=== PATIENT | male | born 1945 | race African-American/Black ===

== ENCOUNTER 2017-11-28 10:29 | Emergency (ER) | payer MEDICARE ==
[~2017-11-28] VITALS: Ht 185.4 cm; Wt 81.6 kg
[2017-11-28 12:47] VITALS: BP 150/78
== END 2017-11-28 12:00 | disposition home or self-care (01) ==
LOC: FSED 10:29
DX: J30.9 Allergic rhinitis, unspecified (principal); R05 Cough; R03.0 Elevated blood-pressure reading, without diagnosis of hypertension
CPT/HCPCS: 71046; 99283

== ENCOUNTER 2019-01-01 12:47 | Emergency (ER) | payer MEDICARE ==
[~2019-01-01] VITALS: Ht 177.8 cm; Wt 81.6 kg
--- OUTSIDE RECORDS SUMMARY | 2019-01-01 12:50 | XMS REPORT | CCD ---
Author Author Auto Generated Organization [facility] Address Unknown Phone Unavailable Care Team Providers Care [employer] Name Role Phone Otilio Hernández CP Allergies, Adverse Reactions, Alerts Substance Reaction Status NKDA Active Problem List Condition Effective Dates Status Cholesterol Resolved Diabetes mellitus Resolved GERD - Gastro-esophageal reflux disease Resolved Hypertension Resolved Vital Signs Most recent to oldest [Reference Range]: 1 2 3 Height 185.42 cm (09/19/2013 00:25:00) Temperature Oral [96.4-99.1 DegF] 98.2 DegF (09/19/2013 05:55:00) 98.0 DegF (09/19/2013 02:52:00) 98.1 DegF (09/19/2013 00:25:00) Systolic Blood Pressure [90-140 mmHg] 153 mmHg *HI* (09/19/2013 05:55:00) 153 mmHg *HI* (09/19/2013 02:52:00) 143 mmHg *HI* (09/19/2013 02:44:00) Diastolic Blood Pressure [60-90 mmHg] 66 mmHg (09/19/2013 05:55:00) 82 mmHg (09/19/2013 02:52:00) 79 mmHg (09/19/2013 02:44:00) Respiratory Rate [14-20 BRMIN] 18 BRMIN (09/19/2013 05:55:00) 20 BRMIN (09/19/2013 02:52:00) 20 BRMIN (09/19/2013 00:25:00) Peripheral Pulse Rate [60-100 bpm] 65 bpm (09/19/2013 05:55:00) 68 bpm (09/19/2013 02:52:00) 60 bpm (09/19/2013 00:25:00) Weight 81.818 kg (09/19/2013 00:25:00) Results CHEMISTRY Most recent to oldest [Reference Range]: 1 Sodium Lvl [135-145 mEq/L] 140 mEq/L (09/19/2013 04:25:00) Potassium Lvl [3.5-5.1 mEq/L] 4.0 mEq/L (09/19/2013 04:25:00) Chloride Lvl [95-109 mEq/L] 101 mEq/L (09/19/2013 04:25:00) CO2 [24-32 mEq/L] 32 mEq/L (09/19/2013 04:25:00) AGAP [10.0-20.0 mEq/L] 11.0 mEq/L (09/19/2013 04:25:00) Creatinine Lvl [0.5-1.4 mg/dL] 1.0 mg/dL (09/19/2013 04:25:00) eGFR 89 mL/min/1.73m2 1 *NA* (09/19/2013:25:00) BUN [7-22 mg/dL] 15 mg/dL (09/19/2013 04:25:00) B/C Ratio [6-25] 15 (09/19/2013 04:25:00) Glucose Lvl [70-99 mg/dL] 106 mg/dL 2 *HI* (09/19/2013 04:25:00) Total Protein [6.4-8.4 g/dL] 8.4 g/dL (09/19/2013 04:25:00) Albumin Lvl [3.5-5.0 g/dL] 3.6 g/dL (09/19/2013 04:25:00) Globulin [2.0-4.0 g/dL] 4.8 g/dL *HI* (09/19/2013 04:25:00) A/G Ratio [0.7-1.6] 0.8 (09/19/2013 04:25:00) Calcium Lvl [8.5-10.5 mg/dL] 9.6 mg/dL (09/19/2013 04:25:00) ALT [0-65 unit/L] 18 unit/L (09/19/2013 04:25:00) AST [0-37 unit/L] 18 unit/L (09/19/2013 04:25:00) Alk Phos [39-136 unit/L] 138 unit/L *HI* (09/19/2013 04:25:00) Bili Total [0.2-1.3 mg/dL] 0.3 mg/dL (09/19/2013 04:25:00) Total CK [12-191 unit/L] 361 unit/L *HI* (09/19/2013 04:25:00) CK MB [0.5-3.6 ng/mL] 2.0 ng/mL (09/19/2013:25:00) CK MB Index [0.0-2.5] 0.6 (09/19/2013 04:25:00) Troponin-I [0.00-0.40 ng/mL] <0.02 ng/mL (09/19/2013 04:25:00) 1Result Comment: The eGFR is calculated using the CKD-EPI formula. In most young, healthy individuals the eGFR will be >90 mL/min/1.73m2. The eGFR declines with age. An eGFR of 60-89 may be normal in some populations, particularly the elderly, for whom the CKD-EPI formula has not been extensively validated. Use of the eGFR is not recommended in the following populations: Individuals with unstable creatinine concentrations, including patients and those with serious co-morbid conditions. Patients with extremes in muscle mass or diet. The data above are obtained from the National Kidney Disease Education Program ( NKDEP) which additionally recommends that when the eGFR is used in patients with extremes of body mass index for purposes of drug dosing, the eGFR should be mul tiplied by the estimated BMI. 2Interpretive Data: Adult reference range values reflect the clinical guidelines of the [place] [employer]. HEMATOLOGY Most recent to oldest [Reference Range]: 1 WBC [3.7-10.4 K/CMM] 10.0 K/CMM (09/19/2013 04:25:00) RBC [4.70-6.10 M/CMM] 5.12 M/CMM (09/19/2013 04:25:00) Hgb [14.0-18.0 g/dL] 12.8 g/dL *LOW* (09/19/2013 04:25:00) Hct [42.0-54.0 %] 40.0 % *LOW* (09/19/2013 04:25:00) MCV [80.0-94.0 fL] 78.1 fL *LOW* (09/19/2013 04:25:00) MCH [27.0-31.0 pg] 24.9 pg *LOW* (09/19/2013 04:25:00) MCHC [32.0-36.0 g/dL] 31.9 g/dL *LOW* (09/19/2013 04:25:00) RDW [11.5-14.5 %] 15.1 % *HI* (09/19/2013 04:25:00) Platelet [133-450 K/CMM] 451 K/CMM *HI* (09/19/2013 04:25:00) MPV [7.4-10.4 fL] 6.7 fL *LOW* (09/19/2013 04:25:00) Segs [45.0-75.0 %] 67.9 % (09/19/2013 04:25:00) Lymphocytes [20.0-40.0 %] 16.1 % *LOW* (09/19/2013 04:25:00) Monocytes [2.0-12.0 %] 12.4 % *HI* (09/19/2013 04:25:00) Eosinophils [0.0-4.0 %] 3.3 % (09/19/2013 04:25:00) Basophils [0.0-1.0 %] 0.3 % (09/19/2013 04:25:00) Segs-Bands # [1.5-8.1 K/CMM] 6.8 K/CMM (09/19/2013 04:25:00) Lymphocytes # [1.0-5.5 K/CMM] 1.6 K/CMM (09/19/2013 04:25:00) Monocytes # [0.0-0.8 K/CMM] 1.2 K/CMM *HI* (09/19/2013 04:25:00) Eosinophils # [0.0-0.5 K/CMM] 0.3 K/CMM (09/19/2013 04:25:00) Basophils # [0.0-0.2 K/CMM] 0.0 K/CMM (09/19/2013 04:25:00) PT [12.0-14.7 seconds] 14.2 seconds (09/19/2013 04:25:00) INR [0.85-1.17] 1.11 3 (09/19/2013 04:25:00) PTT [22.9-35.8 seconds] 29.6 seconds 4 (09/19/2013 04:25:00) 3Interpretive Data: RECOMMENDED RANGES FOR PROTIME INR: 2.0-3.0 for most medical and surgical thromboembolic states. 2.5-3.5 for artificial heart valves and recurrent embolism. INR SHOULD BE USED ONLY FOR PATIENTS ON STABLE ANTICOAGULANT THERAPY. 4Interpretive Data: Heparin Therapeutic Range: 57 - 92 Seconds
--- OUTSIDE RECORDS SUMMARY | 2019-01-01 12:50 | XMS REPORT | Summary of Care ---
Author Author [facility] Organization [facility] Address Unknown Phone Unavailable Encounter HQ Maribeth(FERNANDO) [id number] Date(s): 01/26/16 - 02/24/16 [facility] [address] [place] [address]- Discharge Disposition: Home Attending Physician: Dominique Arreola MD Referring Physician: Dominique Arroela MD Vital Signs 1 2 3 Most recent to oldest [Reference Range]: 180.34 cm (01/23/16 2:34 PM) Height 98.1 DegF (02/20/16 9:59 AM) 97.9 DegF (02/16/16 11:15 AM) 98.1 DegF (02/06/16 10:02 AM) Temperature Oral [96.4-99.1 DegF] 149/70 mmHg *HI* (02/20/16 9:59 AM) 146/71 mmHg *HI* (02/16/16 11:15 AM) 148/75 mmHg *HI* (02/06/16 10:02 AM) Blood Pressure [90-140/60-90 mmHg] 18 BRMIN (02/20/16 9:59 AM) 18 BRMIN (02/16/16 11:15 AM) 18 BRMIN (02/06/16 10:02 AM) Respiratory Rate [14-20 BRMIN] 85 bpm (02/20/16 9:59 AM) 64 bpm (02/16/16 11:15 AM) 66 bpm (02/06/16 10:02 AM) Peripheral Pulse Rate [60-100 bpm] 68.636 kg (01/23/16 2:34 PM) Weight 21.1 m2 (01/23/16 2:34 PM) Body Mass Index Problem List Condition Effective Dates Status Health Status Informant Cholesterol(Confirme Resolved d) Diabetes Resolved mellitus(Confirmed) GERD - Resolved Gastro-esophageal reflux disease(Confirmed) Hypertension(Confirm Resolved ed) Allergies, Adverse Reactions, Alerts Substance Reaction Severity Status NKDA Active Medications acetaminophen 500 mg, 1 tab, Route: PO, Drug form: TAB, Q8H, PRN Other -See Comment, Start cheyanne e: 02/06/16 8:30:00, Duration: 4 day, Stop date: 02/10/16 8:29:00 Notes: Max acetaminophen 4000 mg/day (4 gm/day). (Same as: Tylenol Extra Streng ) Start Date: 02/06/16 Stop Date: 02/10/16 Status: Completed acetaminophen 500 mg, 1 tab, Route: PO, Drug form: TAB, Q8H, PRN Other -See Comment, Start cheyanne e: 02/16/16 8:30:00 CDT, Duration: 3 day, Stop date: 02/19/16 8:29:00 CDT Notes: Max acetaminophen 4000 mg/day (4 gm/day). (Same as: Tylenol Extra Streng ) Start Date: 02/16/16 Stop Date: 02/19/16 Status: Completed acetaminophen 500 mg, 1 tab, Route: PO, Drug form: TAB, Q8H, PRN Other -See Comment, Start cheyanne e: 01/30/16 9:00:00, Duration: 4 day, Stop date: 02/03/16 15:54:00 Notes: Max acetaminophen 4000 mg/day (4 gm/day). (Same as: Tylenol Extra Streng ) Start Date: 01/30/16 Stop Date: 02/03/16 Status: Completed acetaminophen 500 mg, 1 tab, Route: PO, Drug form: TAB, Q8H, PRN Other -See Comment, Start hceyanne e: 02/20/16 8:30:00 CDT, Duration: 3 day, Stop date: 02/23/16 8:29:00 CDT Notes: Max acetaminophen 4000 mg/day (4 gm/day). (Same as: Tylenol Extra Streng ) Start Date: 02/20/16 Stop Date: 02/23/16 Status: Completed acetaminophen 500 mg, 1 tab, Route: PO, Drug form: TAB, Q8H, PRN Other -See Comment, Start cheyanne e: 01/26/16 9:30:00, Duration: 1 day, Stop date: 01/27/16 9:29:00 Notes: Max acetaminophen 4000 mg/day (4 gm/day). (Same as: Tylenol Extra Streng th) Start Date: 01/26/16 Stop Date: 01/27/16 Status: Completed Benadryl 25 mg, 1 tab, Route: PO, Drug form: TAB, Q6H, PRN Itching, Start date: 01/26/16 9:30:00, Duration: 1 day, Stop date: 01/27/16 9:29:00 Start Date: 01/26/16 Stop Date: 01/27/16 Status: Completed Benadryl 25 mg, 1 tab, Route: PO, Drug form: TAB, Q6H, PRN Itching, Start date: 02/06/16 8:30:00, Duration: 4 day, Stop date: 02/10/16 8:29:00 Start Date: 02/06/16 Stop Date: 02/10/16 Status: Completed Benadryl 25 mg, 1 tab, Route: PO, Drug form: TAB, Q6H, PRN Itching, Start date: 01/30/16 9:00:00, Duration: 4 day, Stop date: 02/03/16 15:54:00 Start Date: 01/30/16 Stop Date: 02/03/16 Status: Completed Benadryl 25 mg, 1 tab, Route: PO, Drug form: TAB, Q6H, PRN Itching, Start date: 02/16/16 8:30:00 CDT, Duration: 2 day, Stop date: 02/18/16 8:29:00 CDT Start Date: 02/16/16 Stop Date: 02/18/16 Status: Completed Benadryl 25 mg, 1 tab, Route: PO, Drug form: TAB, Q6H, PRN Itching, Start date: 02/20/16 8:30:00 CDT, Duration: 2 day, Stop date: 02/22/16 8:29:00 CDT Start Date: 02/20/16 Stop Date: 02/22/16 Status: Completed Venofer + Sodium Chloride 0.9% IV 235 mL 300 mg, 15 mL, Route: IV, Drug form: INJ, ONCALL, Start date: 02/06/16 8:30:00, Duration: 1 day, Stop date: 02/07/16 8:29:00 Notes: Each 5ml contains 100mg elemental iron. Mix with NS(Same as:Venofer)Admi nister IV only. MEDICATION WASTE Product Size: 100 mgProduct Wasted: _ __ mg Start Date: 02/06/16 Stop Date: 02/06/16 Status: Completed Venofer + Sodium Chloride 0.9% IV 235 mL 300 mg, 15 mL, Route: IV, Drug form: INJ, ONCALL, Start date: 02/02/16 9:00:00, Duration: 1 day, Stop date: 02/03/16 8:59:00 Notes: Each 5ml contains 100mg elemental iron. Mix with NS(Same as:Venofer)Admi nister IV only. MEDICATION WASTE Product Size: 100 mgProduct Wasted: _ __ mg Start Date: 02/02/16 Stop Date: 02/02/16 Status: Completed Venofer + Sodium Chloride 0.9% IV 235 mL 300 mg, 15 mL, Route: IV, Drug form: INJ, ONCALL, Start date: 01/30/16 9:00:00, Duration: 1 day, Stop date: 01/31/16 8:59:00 Notes: Each 5ml contains 100mg elemental iron. Mix with NS(Same as:Venofer)Admi nister IV only. MEDICATION WASTE Product Size: 100 mgProduct Wasted: _ __ mg Start Date: 01/30/16 Stop Date: 01/30/16 Status: Completed Venofer + Sodium Chloride 0.9% IV 235 mL 300 mg, 15 mL, Route: IV, Drug form: INJ, ONCALL, Start date: 02/20/16 8:30:00 C DT, Duration: 1 day, Stop date: 02/21/16 8:29:00 CDT Notes: Each 5ml contains 100mg elemental iron. Mix with NS(Same as:Venofer)Admi nister IV only. MEDICATION WASTE Product Size: 100 mgProduct Wasted: _ __ mg Start Date: 02/20/16 Stop Date: 02/20/16 Status: Completed Venofer + Sodium Chloride 0.9% IV 235 mL 300 mg, 15 mL, Route: IV, Drug form: INJ, ONCALL, Start date: 01/26/16 9:30:00, Duration: 1 day, Stop date: 01/27/16 9:29:00 Notes: Each 5ml contains 100mg elemental iron. Mix with NS(Same as:Venofer)Admi nister IV only. MEDICATION WASTE Product Size: 100 mgProduct Wasted: _ __ mg Start Date: 01/26/16 Stop Date: 01/26/16 Status: Completed Venofer + Sodium Chloride 0.9% IV 235 mL 300 mg, 15 mL, Route: IV, Drug form: INJ, ONCALL, Start date: 02/16/16 8:30:00 C DT, Duration: 1 day, Stop date: 02/17/16 8:29:00 CDT Notes: Each 5ml contains 100mg elemental iron. Mix with NS(Same as:Venofer)Admi nister IV only. MEDICATION WASTE Product Size: 100 mgProduct Wasted: _ __ mg Start Date: 02/16/16 Stop Date: 02/16/16 Status: Completed Vitamin B12 1,000 microgram, 1 mL, Route: IM, Drug form: INJ, ONCALL, Start date: 01/26/16 9 :30:00, Duration: 1 day, Stop date: 01/27/16 9:29:00 Notes: (Same As: Vitamin B12) Start Date: 01/26/16 Stop Date: 01/26/16 Status: Completed Results No data available for this section Immunizations No data available for this section Procedures No data available for this section Social History Social History Type Response Smoking Status Former smoker; Exposure to Tobacco Smoke None; Cigarette Smoking Last 365 Days No; Reg Smoking Cessation Counseling Yes Assessment and Plan No data available for this section
--- OUTSIDE RECORDS SUMMARY | 2019-01-01 12:50 | XMS REPORT | Continuity of Care Document ---
Author Author [facility] Interface Address Unknown Phone Unavailable Problems Problem Status Onset Date Classification Date Reported Comments Source ABD PAIN, GI BLEED Active 08/04/2016 [facility] VENOFER 300 MG X6 DOSES, [id number], D50. Active 01/23/2016 [facility] APNEA Active 06/04/2014 [facility] EAR PAIN Active 09/18/2013 [facility] Cholesterol Resolved Problem 10/21/2016 [facility] Crohn's disease of intestine Resolved Problem 10/21/2016 [facility] Diabetes mellitus Resolved Problem 10/21/2016 [facility] Laryngeal mass Resolved Problem 10/21/2016 [facility] GERD - Gastro-esophageal reflux disease Resolved Problem 10/21/2016 [facility] Hypertension Resolved Problem 10/21/2016 [facility] Anemia, iron deficiency Resolved Problem 10/21/2016 [facility] Type 2 diabetes mellitus without complication Active Problem 11/30/2016 [facility] Mixed hyperlipidemia Active Problem 11/30/2016 [facility] Microcytic anemia Active Problem 11/30/2016 [facility] AGUSTIN Active Problem 11/30/2016 [facility] GERD Active Problem 11/30/2016 [facility] Elevated antinuclear antibody level Active Problem 11/30/2016 [facility] Acute right ankle pain Active Problem 11/30/2016 [facility] Skin lesion Active Problem 11/30/2016 [facility] Abnormal weight loss Active Problem 11/30/2016 [facility] Atrophy of muscle of extremity Active Problem 11/30/2016 [facility] Closed fracture of distal end of left fibula, unspecified fracture morphology, initial encounter Active Problem 11/30/2016 [facility] Ankle swelling, right Active Problem 11/30/2016 [facility] Acute left ankle pain Active Problem 11/30/2016 [facility] Underweight Active Problem 11/30/2016 [facility] Ankle swelling, left Active Problem 11/30/2016 [facility] BMI less than 19,adult Active Problem 11/30/2016 [facility] Iron deficiency Active Problem 11/30/2016 [facility] Skin infection Active Diagnosis 09/16/2015 [facility] IBS Active Diagnosis 12/06/2015 [facility] DJD , ankle and foot Active Diagnosis 12/06/2015 [facility] Complication due to Crohn's disease of small and large intestines Active Diagnosis 08/06/2016 [facility] Anemia due to gastrointestinal blood loss Active Diagnosis 08/06/2016 [facility] Crohn's disease of both small and large intestine without complications Active Diagnosis 08/06/2016 [facility] Crohns disease of both small and large intestine without complication Active Problem 11/30/2016 [facility] Proctitis Active Diagnosis 10/09/2016 [facility] Encounter to discuss test results Active Diagnosis 10/09/2016 [facility] Acute posthemorrhagic anemia Active Diagnosis 10/09/2016 [facility] Proctocolitis, with rectal bleeding Active Diagnosis 08/27/2016 [facility] Acute allergic conjunctivitis, bilateral Active Diagnosis 08/27/2016 [facility] Hospital discharge follow-up Active Diagnosis 08/27/2016 [facility] Colitis Active Diagnosis 08/27/2016 [facility] Gastrointestinal hemorrhage associated with anorectal source Active Diagnosis 08/27/2016 [facility] GASTROINTESTINAL HEMORRHAGE, UNSPECIFIED Active [facility] XRAY Active [facility] NONSPECIFIC REACTION TO SKIN TEST W/O AC Active [facility] Medications Medication Details Route Status Patient Instructions Ordering Provider Order Date Source Humira 0.8 ml Subcutaneous Active 40 MG/0.8ML Subcutaneous Genaro 11/29/2016 [facility] Patanol 1 drop into affected eye Ophthalmic Active 0.1 % Ophthalmic Twice a day Ghebranious 08/25/2016 [facility] Prednisone 40 mg, 2 tab, Route: PO, Drug form: TAB, Daily, Dosing Weight 83.455, kg, Start date: 08/06/16 9:00:00 CDT, Duration: 30 day, Stop date: 09/04/16 9:00:00 CDTNotes: Take with food. Inactive 08/06/2016 [facility] ferrous sulfate 325 mg, 1 tab, Route: PO, Drug form: ECTAB, Daily, Dosing Weight 83.455, kg, Start date: 08/06/16 9:00:00 CDT, Duration: 30 day, Stop date: 09/04/16 9:00:00 CDTNotes: Give with food. "Do Not Crush" Inactive 08/06/2016 [facility] Lisinopril 5 mg, 1 tab, Route: PO, Drug form: TAB, Daily, Dosing Weight 83.455, kg, Start date: 08/06/16 9:00:00 CDT, Duration: 30 day, Stop date: 09/04/16 9:00:00 CDTNotes: (Same as: Prinivil, Zestril) Inactive 08/06/2016 [facility] predniSONE 10 mg oral tablet See Instructions, Take 4 tabs x 10days, 3 tabs x 10 adys, 2 tabs x 10 days, then 1 tab x 10days., # 100 tab, 0 Refill(s) Active 08/06/2016 [facility] Sodium Chloride 0.154 MEQ/ML Injectable Solution 1,000 mL, Rate: 25 ml/hr, Infuse over: 40 hr, Route: IV, Dosing Weight 83.455 kg, Total Volume: 1,000, Start date: 08/06/16 7:53:00 CDT, Duration: 30 day, Stop date: 09/05/16 7:52:00 RENTAL COUNTER CLERK Inactive 08/06/2016 [facility] Simvastatin 40 mg, 1 tab, Route: PO, Drug form: TAB, Bedtime, Dosing Weight 83.455, kg, Start date: 08/05/16 21:00:00 CDT, Duration: 30 day, Stop date: 09/03/16 21:00:00 CDTNotes: (Same as: Zocor) No Longer Active 08/06/2016 [facility] Golytely 4,000 ml, Route: PO, Drug Form: PDR/REC, Dosing Weight 83.455, kg, ONCE, Start date: 08/05/16 18:15:00 CDT, Duration: 1 doses or times, Stop date: 08/05/16 18:15:00 CDTNotes: (polyethylene glycol electr olyte solution 4 Liter bottle) (Same as: Annie Ward) Inactive 08/05/2016 [facility] multivitamin 1 tablet, PO, Daily, 0 Refill(s) Active 08/05/2016 [facility] mesalamine 1.5 gm, PO, Daily, 0 Refill(s) Active 08/05/2016 [facility] Non-Formulary Home Medication 2 tablets, PO, Daily, Refill(s) 0 Active 08/05/2016 [facility] lisinopril 5 mg oral tablet 5 mg=1 tab, PO, Daily, 0 Refill(s) Active 08/05/2016 [facility] predniSONE 5 mg oral tablet 7.5 mg=1.5 tab, PO, Daily, 0 Refill(s) No Longer Active 08/05/2016 [facility] ferrous sulfate 325 MG Oral Tablet 325 mg=1 tab, PO, Daily, 0 Refill(s) Active 08/05/2016 [facility] Insulin, Aspart, Human 4 unit, 0.04 mL, Route: SUB-Q, Drug form: SOLN, Bedtime, Dosing Weight 68.636, kg, PRN Blood Glucose Results, Start date: 08/04/16 17:27:00 CDT, Duration: 30 day, Stop date: 09/03/16 17:26:00 CDTNotes: Roll in palms of hands gently; Do not shake vigorously. (Same as: NovoLOG) "single patient use only" WASTE: F/P - Black; E - Municipal Trash Bin Stable for 28 days at room temperature. Expires in days from Date No Longer Active 08/04/2016 [facility] Dextrose 50% Syringe 12.5 gm, 25 mL, Route: IVP, Drug Form: INJ, Dosing Weight 68.636, kg, PRN, PRN Blood Glucose Results, Start date: 08/04/16 17:27:00 CDT, Duration: 30 day, Stop date: 09/03/16 17:26:00 CDT No Longer Active 08/04/2016 [facility] Glucagon 1 mg, Route: IM, Drug form: PDR/INJ, PRN, Dosing Weight 68.636, kg, PRN Blood Glucose Results, Start date: 08/04/16 17:27:00 CDT, Duration: 30 day, Stop date: 09/03/16 17:26:00 CDT No Longer Active 08/04/2016 [facility] D5NS + KCL 20mEq/L 1000ml (Premix) 1,000 mL 1,000 mL, Rate: 75 ml/hr, Infuse over: 13.3 hr, Route: IV, Dosing Weight 68.636 kg, Total Volume: 1,000, Start date: 08/04/16 17:26:00 CDT, Duration: 30 day, Stop date: 09/03/16 17:25:00 CDTNotes: PREMIX IV - Do Not Alter WASTE: F/P - Sink; E - Municipal Trash Bin No Longer Active 08/04/2016 [facility] Saline Flush 0.9% 10 ml, Route: IVP, Drug Form: INJ, Dosing Weight 68.636, kg, PRN, PRN Line Flush, Start date: 08/04/16 17:26:00 CDT, Duration: 30 day, Stop date: 09/03/16 17:25:00 CDTNotes: (Same as: BD Posiflush) No Longer Active 08/04/2016 [facility] sodium chloride 0.9% INJ 250 mL 250 mL, Rate: lending consultant for use with blood product administration, Dosing Weight 68.636, kg, Route: IV, Total Volume: 250, Start Date: 08/04/16 17:26:00 CDT, Duration: 1 day, Stop date: 08/05/16 17:25:00 CDT, Replace Every: 24 hr No Longer Active 08/04/2016 [facility] Venofer + Sodium Chloride 0.9% IV 235 mL 300 mg, 15 mL, Route: IV, Drug form: INJ, ONCALL, Start date: 02/20/16 8:30:00 CDT, Duration: 1 day, Stop date: 02/21/16 8:29:00 CDTNotes: Each 5ml contains 100mg elemental iron. Mix with NS (Same as:Venofer) Administer IV only. MEDICATION WASTE Product Size: 100 mg Product Wasted: ___ mg Inactive 02/20/2016 [facility] Benadryl 25 mg, 1 tab, Route: PO, Drug form: TAB, Q6H, PRN Itching, Start date: 02/20/16 8:30:00 CDT, Duration: 2 day, Stop date: 02/22/16 8:29:00 CDT No Longer Active 02/20/2016 [facility] acetaminophen 500 mg, 1 tab, Route: PO, Drug form: TAB, Q8H, PRN Other -See Comment, Start date: 02/20/16 8:30:00 CDT, Duration: 3 day, Stop date: 02/23/16 8:29:00 CDTNotes: Max acetaminophen 4000 mg/day (4 gm/day). (Same as: Tylenol Extra Strength) No Longer Active 02/20/2016 [facility] acetaminophen 500 mg, 1 tab, Route: PO, Drug form: TAB, Q8H, PRN Other -See Comment, Start date: 02/16/16 8:30:00 CDT, Duration: 3 day, Stop date: 02/19/16 8:29:00 CDTNotes: Max acetaminophen 4000 mg/day (4 gm/day). (Same as: Tylenol Extra Strength) No Longer Active 02/16/2016 [facility] Benadryl 25 mg, 1 tab, Route: PO, Drug form: TAB, Q6H, PRN Itching, Start date: 02/16/16 8:30:00 CDT, Duration: 2 day, Stop date: 02/18/16 8:29:00 CDT No Longer Active 02/16/2016 [facility] Venofer + Sodium Chloride 0.9% IV 235 mL 300 mg, 15 mL, Route: IV, Drug form: INJ, ONCALL, Start date: 02/16/16 8:30:00 CDT, Duration: 1 day, Stop date: 02/17/16 8:29:00 CDTNotes: Each 5ml contains 100mg elemental iron. Mix with NS (Same as:Venofer) Administer IV only. MEDICATION WASTE Product Size: 100 mg Product Wasted: ___ mg Inactive 02/16/2016 [facility] Benadryl 25 mg, 1 tab, Route: PO, Drug form: TAB, Q6H, PRN Itching, Start date: 02/06/16 8:30:00, Duration: 4 day, Stop date: 02/10/16 8:29:00 No Longer Active 02/06/2016 [facility] acetaminophen 500 mg, 1 tab, Route: PO, Drug form: TAB, Q8H, PRN Other -See Comment, Start date: 02/06/16 8:30:00, Duration: 4 day, Stop date: 02/10/16 8:29:00Notes: Max acetaminophen 4000 mg/day (4 gm/day). (Same as: Tylenol Extra Strength) No Longer Active 02/06/2016 [facility] Venofer + Sodium Chloride 0.9% IV 235 mL 300 mg, 15 mL, Route: IV, Drug form: INJ, ONCALL, Start date: 02/06/16 8:30:00, Duration: 1 day, Stop date: 02/07/16 8:29:00Notes: Each 5ml contains 100mg elemental iron. Mix with NS (Same as:Venofer) Administer IV only. MEDICATION WASTE Product Size: 100 mg Product Wasted: ___ mg Inactive 02/06/2016 [facility] Venofer + Sodium Chloride 0.9% IV 235 mL 300 mg, 15 mL, Route: IV, Drug form: INJ, ONCALL, Start date: 02/02/16 9:00:00, Duration: 1 day, Stop date: 02/03/16 8:59:00Notes: Each 5ml contains 100mg elemental iron. Mix with NS (Same as:Venofer) Administer IV only. MEDICATION WASTE Product Size: 100 mg Product Wasted: ___ mg Inactive 02/02/2016 [facility] Venofer + Sodium Chloride 0.9% IV 235 mL 300 mg, 15 mL, Route: IV, Drug form: INJ, ONCALL, Start date: 01/30/16 9:00:00, Duration: 1 day, Stop date: 01/31/16 8:59:00Notes: Each 5ml contains 100mg elemental iron. Mix with NS (Same as:Venofer) Administer IV only. MEDICATION WASTE Product Size: 100 mg Product Wasted: ___ mg Inactive 01/30/2016 [facility] Benadryl 25 mg, 1 tab, Route: PO, Drug form: TAB, Q6H, PRN Itching, Start date: 01/30/16 9:00:00, Duration: 4 day, Stop date: 02/03/16 15:54:00 No Longer Active 01/30/2016 [facility] acetaminophen 500 mg, 1 tab, Route: PO, Drug form: TAB, Q8H, PRN Other -See Comment, Start date: 01/30/16 9:00:00, Duration: 4 day, Stop date: 02/03/16 15:54:00Notes: Max acetaminophen 4000 mg/day (4 gm/day). (Same as: Tylenol Extra Strength) No Longer Active 01/30/2016 [facility] Benadryl 25 mg, 1 tab, Route: PO, Drug form: TAB, Q6H, PRN Itching, Start date: 01/26/16 9:30:00, Duration: 1 day, Stop date: 01/27/16 9:29:00 No Longer Active 01/26/2016 [facility] Vitamin B12 1,000 microgram, 1 mL, Route: IM, Drug form: INJ, ONCALL, Start date: 01/26/16 9:30:00, Duration: 1 day, Stop date: 01/27/16 9:29:00Notes: (Same As: Vitamin B12) Inactive 01/26/2016 [facility] Venofer + Sodium Chloride 0.9% IV 235 mL 300 mg, 15 mL, Route: IV, Drug form: INJ, ONCALL, Start date: 01/26/16 9:30:00, Duration: 1 day, Stop date: 01/27/16 9:29:00Notes: Each 5ml contains 100mg elemental iron. Mix with NS (Same as:Venofer) Administer IV only. MEDICATION WASTE Product Size: 100 mg Product Wasted: ___ mg Inactive 01/26/2016 [facility] acetaminophen 500 mg, 1 tab, Route: PO, Drug form: TAB, Q8H, PRN Other -See Comment, Start date: 01/26/16 9:30:00, Duration: 1 day, Stop date: 01/27/16 9:29:00Notes: Max acetaminophen 4000 mg/day (4 gm/day). (Same as: Tylenol Extra Strength) No Longer Active 01/26/2016 [facility] PredniSONE 1 tablet with food or milk Orally Active 20 mg Orally Once a day Ghebranious 01/13/2016 [facility] Indocin 1 capsule with food Orally Active 50 mg Orally Three times a day ebranious 11/18/2015 [facility] Mupirocin 1 application to affected area and inside each nostril Externally Active 2 % Externally twice a day (bid) [place]ring[place] 09/12/2015 [facility] Sulfamethoxazole-TMP DS 1 tablet Orally Active 800-160 MG Orally twice a day (bid) [place] 09/12/2015 [facility] Naproxen 1 tablet Orally No Longer Active 375 MG Orally Twice a day [facility] Lisinopril 1 tablet NA Active 2.[address] [facility] Metformin HCl 1 tablet NA Active [address] [facility] Cephalexin 1 capsule Orally Active 500 mg Orally Twice a day [facility] Simvastatin 1 tablet NA Active [address] [facility] Tramadol HCl 1 tablet as needed Orally Active 50 MG Orally every [address] [facility] Lisinopril 1 tablet NA Active 2.[address] [facility] Multi For Her 50+ Unknown Orally Active Orally [facility] Allergies, Adverse Reactions, Alerts Substance Category Reaction Severity Reaction type Status Date Reported Comments Source N.K.D.A. Adverse Reaction Info Not Available Adverse Reaction Active 09/28/2016 [facility] Immunizations Immunization Date Given Site Status Last Updated Comments Source Results Order Name Results Value Reference Range Date Interpretation Comments Source Chest 2 views DX Chest 2 views DX Patient Name: DEVAN NAIK : 1945; Age: 71 years y/o Male MR: [id number] * CHEST, 2 views HISTORY: R76.11 Nonspecific reaction to tuberculin skin test without active tuberculosis, COMPARISON: 02/15/2013. TECHNIQUE: Frontal and lateral radiographs of the chest were obtained. FINDINGS: The lungs are clear. There are no pleural effusions. The heart and pulmonary vasculature are within normal limits. Are and The regional skeleton is otherwise unremarkable. IMPRESSION: 1. No active disease. SL: [id number] 10/18/2016 - - Read by: Harshal Hart MD Dictated Date/time: 10/18/16 13:46 Electronically Signed by: Harshal Hart MD 10/18/16 13:51 FINAL REPORT [facility] CHEM PANEL eGFR 78 mL/min/1.73m2 08/06/2016 Result Comment: The eGFR is calculated using the [...] from the National Kidney Disease Education Program (NKDEP) which additionally recommends that when the eGFR is used in patients with extremes of body mass index for purposes of drug dosing, the eGFR should be multiplied by the estimated BMI. [facility] CHEM PANEL CO2 28 meq/L 24 - 32 08/06/2016 [facility] CHEM PANEL AGAP 11.2 meq/L 10.0 - 20.0 08/06/2016 [facility] CHEM PANEL BUN 9 mg/dL 7 - 22 08/06/2016 [facility] CHEM PANEL Creatinine Lvl 1.10 mg/dL 0.50 - 1.40 08/06/2016 [facility] CHEM PANEL Sodium Lvl 140 meq/L 135 - 145 08/06/2016 [facility] CHEM PANEL Chloride Lvl 105 meq/L 95 - 109 08/06/2016 [facility] CHEM PANEL Potassium Lvl 4.2 meq/L 3.5 - 5.1 08/06/2016 [facility] CHEM PANEL Glucose Lvl 123 mg/dL 70 - 99 08/06/2016 [facility] CHEM PANEL Calcium Lvl 9.0 mg/dL 8.5 - 10.5 08/06/2016 [facility] HEMATOLOGY Segs-Bands # 4.8 K/CMM 1.5 - 8.1 08/06/2016 [facility] HEMATOLOGY Basophils 0.6 % 0.0 - 1.0 08/06/2016 [facility] HEMATOLOGY Eosinophils 1.8 % 0.0 - 4.0 08/06/2016 [facility] HEMATOLOGY Monocytes 9.4 % 2.0 - 12.0 08/06/2016 [facility] Lymphocytes 31.7 % 20.0 - 40.0 08/06/2016 [facility] Monocytes # 0.8 K/CMM 0.0 - 0.8 08/06/2016 [facility] Lymphocytes # 2.7 K/CMM 1.0 - 5.5 08/06/2016 [facility] Basophils # 0.1 K/CMM 0.0 - 0.2 08/06/2016 [facility] Eosinophils # 0.2 K/CMM 0.0 - 0.5 08/06/2016 [facility] Segs 56.5 % 45.0 - 75.0 08/06/2016 [facility] PTT 26.0 s 22.9 - 35.8 08/06/2016 [facility] INR 1.11 0.85 - 1.17 08/06/2016 [facility] PT 14.5 s 12.0 - 14.7 08/06/2016 [facility] MPV 7.1 fL 7.4 - 10.4 08/06/2016 [facility] Platelet 358 K/CMM 133 - 450 08/06/2016 [facility] RBC 4.51 M/CMM 4.70 - 6.10 08/06/2016 [facility] WBC 8.4 K/CMM 3.7 - 10.4 08/06/2016 [facility] RDW 15.1 % 11.5 - 14.5 08/06/2016 [facility] MCH 25.5 pg 27.0 - 31.0 08/06/2016 [facility] MCV 80.6 fL 80.0 - 94.0 08/06/2016 [facility] Hct 36.4 % 42.0 - 54.0 08/06/2016 [facility] Hgb 11.5 g/dL 14.0 - 18.0 08/06/2016 [facility] MCHC 31.6 g/dL 32.0 - 36.0 08/06/2016 [facility] MOLECULAR DIAGNOSTIC C difficile DNA Negative (08/05/16 10:46 AM) Negative 08/05/2016 [facility] Abdomen/Pelvis w/wo IV contrast CT Abdomen/Pelvis w/wo IV contrast CT Abdomen/Pelvis w/wo IV contrast CT TECHNIQUE: Contiguous transaxial images of the abdomen and pelvis were performed from the lung bases to the superior pubic rami without and with IV contrast. CLINICAL HX: Bloody stool; COMPARISON: 02/15/2013 FINDINGS: NONCONTRAST CT images: No tract calculi are evident. CT ABDOMEN with: Lower Chest: The lung bases are clear. GI Tract: Question mild thickening of the wall of the rectum versus changes related to underdistention. Remainder the colon is grossly unremarkable in appearance. There are a few subcentimeter lymph nodes noted in the right lower abdomen adjacent to cecum. There is no evidence for free fluid or free air in the abdomen. Tract and retroperitoneum: The kidneys demonstrate normal morphology and symmetric excretion. No significant retroperitoneal lymphadenopathy is noted. Abdominal viscera: Mild fatty infiltration of liver. The spleen, pancreas and both adrenals are unremarkable in appearance. Cholelithiasis. Vasculature: Aorta demonstrates normal morphology. Bone and Soft tissues: Mild thoracolumbar spondylosis. CT PELVIS without and with: The bladder demonstrates normal morphology on the pre and postcontrast images. There is mild to moderate enlargement of prostate gland. No free fluid is present in the pelvis. IMPRESSION: Question mild thickening of the wall of the rectum. Correlate clinically for other signs of proctitis. Cholelithiasis. Fatty infiltration of liver. Mild to moderate enlargement of prostate gland. Correlation with PSA is recommended. SL: [id number] 08/05/2016 - - Read by: Brent White MD Dictated Date/time: 08/05/16 15:17 Electronically Signed by: Brent White MD 08/05/16 15:30 FINAL REPORT [facility] ELECTROLYTES AGAP 8.7 meq/L 10.0 - 20.0 08/05/2016 [facility] ELECTROLYTES Chloride Lvl 104 meq/L 95 - 109 08/05/2016 [facility] ELECTROLYTES CO2 31 meq/L 24 - 32 08/05/2016 [facility] ELECTROLYTES Calcium Lvl 9.0 mg/dL 8.5 - 10.5 08/05/2016 [facility] ELECTROLYTES eGFR 87 mL/min/1.73m2 08/05/2016 Result Comment: The eGFR is calculated using the [...] from the National Kidney Disease Education Program (NKDEP) which additionally recommends that when the eGFR is used in patients with extremes of body mass index for purposes of drug dosing, the eGFR should be multiplied by the estimated BMI. [facility] ELECTROLYTES Glucose Lvl 115 mg/dL 70 - 99 08/05/2016 [facility] ELECTROLYTES Sodium Lvl 139 meq/L 135 - 145 08/05/2016 [facility] ELECTROLYTES BUN 19 mg/dL 7 - 22 08/05/2016 [facility] ELECTROLYTES Creatinine Lvl 1.00 mg/dL 0.50 - 1.40 08/05/2016 [facility] ELECTROLYTES Potassium Lvl 4.7 meq/L 3.5 - 5.1 08/05/2016 [facility] HEMATOLOGY MCH 26.2 pg 27.0 - 31.0 08/05/2016 [facility] HEMATOLOGY MCV 80.2 fL 80.0 - 94.0 08/05/2016 [facility] HEMATOLOGY Hct 34.6 % 42.0 - 54.0 08/05/2016 [facility] HEMATOLOGY MPV 7.0 fL 7.4 - 10.4 08/05/2016 [facility] HEMATOLOGY Hgb 11.3 g/dL 14.0 - 18.0 08/05/2016 [facility] HEMATOLOGY RBC 4.32 M/CMM 4.70 - 6.10 08/05/2016 [facility] HEMATOLOGY Platelet 327 K/CMM 133 - 450 08/05/2016 [facility] HEMATOLOGY RDW 14.9 % 11.5 - 14.5 08/05/2016 [facility] MCHC 32.6 g/dL 32.0 - 36.0 08/05/2016 [facility] HEMATOLOGY WBC 7.5 K/CMM 3.7 - 10.4 08/05/2016 [facility] HEMATOLOGY Sed Rate 24 mm/h 0 - 15 08/05/2016 [facility] IMMUNOLOGY C-REACTIVE PROTEIN 7.9 mg/L <=2.9 mg/L 08/05/2016 [facility] BLOOD BANK RESULTS ABO/Rh B POS 08/05/2016 [facility] BLOOD BANK RESULTS Antibody Scrn Negative (08/04/16 8:26 PM) 08/05/2016 [facility] CHEM PANEL A/G Ratio 0.9 0.7 - 1.6 08/05/2016 [facility] CHEM PANEL AGAP 9.8 meq/L 10.0 - 20.0 08/05/2016 [facility] CHEM PANEL B/C Ratio 18 6 - 25 08/05/2016 [facility] CHEM PANEL Globulin 4.1 g/dL 2.7 - 4.2 08/05/2016 [facility] CHEM PANEL eGFR 70 mL/min/1.73m2 08/05/2016 Result Comment: The eGFR is calculated using the [...] from the National Kidney Disease Education Program (NKDEP) which additionally recommends that when the eGFR is used in patients with extremes of body mass index for purposes of drug dosing, the eGFR should be multiplied by the estimated BMI. [facility] CHEM PANEL Sodium Lvl 135 meq/L 135 - 145 08/05/2016 [facility] CHEM PANEL AST 19 unit/L 0 - 37 08/05/2016 [facility] CHEM PANEL ALT 19 unit/L 0 - 65 08/05/2016 [facility] CHEM PANEL Bili Total 0.4 mg/dL 0.2 - 1.3 08/05/2016 [facility] CHEM PANEL Alk Phos 108 unit/L 39 - 136 08/05/2016 [facility] CHEM PANEL CO2 30 meq/L 24 - 32 08/05/2016 [facility] CHEM PANEL Calcium Lvl 9.4 mg/dL 8.5 - 10.5 08/05/2016 [facility] CHEM PANEL Chloride Lvl 100 meq/L 95 - 109 08/05/2016 [facility] CHEM PANEL Albumin Lvl 3.5 g/dL 3.5 - 5.0 08/05/2016 [facility] CHEM PANEL Total Protein 7.6 g/dL 6.4 - 8.4 08/05/2016 [facility] CHEM PANEL Glucose Lvl 111 mg/dL 70 - 99 08/05/2016 [facility] CHEM PANEL BUN 21 mg/dL 7 - 22 08/05/2016 [facility] CHEM PANEL Creatinine Lvl 1.20 mg/dL 0.50 - 1.40 08/05/2016 [facility] CHEM PANEL Potassium Lvl 4.8 meq/L 3.5 - 5.1 08/05/2016 [facility] HEMATOLOGY MPV 7.7 fL 7.4 - 10.4 08/05/2016 [facility] HEMATOLOGY Platelet 369 K/CMM 133 - 450 08/05/2016 [facility] HEMATOLOGY RBC 4.84 M/CMM 4.70 - 6.10 08/05/2016 [facility] HEMATOLOGY WBC 11.4 K/CMM 3.7 - 10.4 08/05/2016 [facility] HEMATOLOGY MCV 79.8 fL 80.0 - 94.0 08/05/2016 [facility] HEMATOLOGY Hgb 12.5 g/dL 14.0 - 18.0 08/05/2016 [facility] HEMATOLOGY Hct 38.7 % 42.0 - 54.0 08/05/2016 [facility] HEMATOLOGY MCHC 32.3 g/dL 32.0 - 36.0 08/05/2016 [facility] HEMATOLOGY RDW 15.1 % 11.5 - 14.5 08/05/2016 [facility] MCH 25.8 pg 27.0 - 31.0 08/05/2016 [facility] HEMATOLOGY Monocytes # 0.8 K/CMM 0.0 - 0.8 08/05/2016 [facility] HEMATOLOGY Eosinophils # 0.1 K/CMM 0.0 - 0.5 08/05/2016 [facility] HEMATOLOGY Basophils # 0.1 K/CMM 0.0 - 0.2 08/05/2016 [facility] HEMATOLOGY Lymphocytes 23.8 % 20.0 - 40.0 08/05/2016 [facility] HEMATOLOGY Segs 67.7 % 45.0 - 75.0 08/05/2016 [facility] HEMATOLOGY Basophils 0.5 % 0.0 - 1.0 08/05/2016 [facility] HEMATOLOGY Eosinophils 0.8 % 0.0 - 4.0 08/05/2016 [facility] HEMATOLOGY Lymphocytes # 2.7 K/CMM 1.0 - 5.5 08/05/2016 [facility] HEMATOLOGY Segs-Bands # 7.7 K/CMM 1.5 - 8.1 08/05/2016 [facility] HEMATOLOGY Monocytes 7.2 % 2.0 - 12.0 08/05/2016 [facility] HEMATOLOGY PTT 26.0 s 22.9 - 35.8 08/05/2016 [facility] HEMATOLOGY PT 14.5 s 12.0 - 14.7 08/05/2016 [facility] HEMATOLOGY INR 1.11 0.85 - 1.17 08/05/2016 [facility] CHEMISTRY CK MB 2.0 ng/mL 0.5 - 3.6 09/19/2013 Normal [facility] CHEMISTRY CK-MB INDEX 0.6 0.0 - 2.5 09/19/2013 Normal [facility] CHEMISTRY Troponin-I null 0.00 - 0.40 09/19/2013 Normal [facility] CHEMISTRY Total CK 361 unit/L 12 - 191 09/19/2013 [facility] CHEMISTRY AGAP 11.0 meq/L 10.0 - 20.0 09/19/2013 Normal [facility] CHEMISTRY Globulin 4.8 g/dL 2.0 - 4.0 09/19/2013 [facility] CHEMISTRY B/C Ratio 15 6 - 25 09/19/2013 Normal [facility] CHEMISTRY A/G Ratio 0.8 0.7 - 1.6 09/19/2013 Normal [facility] CHEMISTRY eGFR 89 mL/min/1.73m2 09/19/2013 1Result Comment: The eGFR is calculated using [...] from the National Kidney Disease Education Program (NKDEP) which additionally recommends that when the eGFR is used in patients with extremes of body mass index for purposes of drug dosing, the eGFR should be multiplied by the estimated BMI. [facility] CHEMISTRY Alk Phos 138 unit/L 39 - 136 09/19/2013 [place] [facility] CHEMISTRY Bili Total 0.3 mg/dL 0.2 - 1.3 09/19/2013 Normal [facility] CHEMISTRY ASPARTATE TRANSAMINASE 18 unit/L 0 - 37 09/19/2013 Normal [facility] CHEMISTRY ALANINE AMINOTRANSFERASE 18 unit/L 0 - 65 09/19/2013 Normal [facility] CHEMISTRY Creatinine Lvl 1.0 mg/dL 0.5 - 1.4 09/19/2013 Normal [facility] CHEMISTRY BUN 15 mg/dL 7 - 22 09/19/2013 Normal [facility] CHEMISTRY Glucose Lvl 106 mg/dL 70 - 99 09/19/2013 [facility] 2Interpretive Data: Adult reference range values reflect the clinical guidelines of the [place] [employer]. [facility] CHEMISTRY Albumin Lvl 3.6 g/dL 3.5 - 5.0 09/19/2013 Normal [facility] CHEMISTRY Total Protein 8.4 g/dL 6.4 - 8.4 09/19/2013 Normal [facility] CHEMISTRY CO2 32 meq/L 24 - 32 09/19/2013 Normal [facility] CHEMISTRY Calcium Lvl 9.6 mg/dL 8.5 - 10.5 09/19/2013 Normal [facility] CHEMISTRY Chloride Lvl 101 meq/L 95 - 109 09/19/2013 Normal [facility] CHEMISTRY Potassium Lvl 4.0 meq/L 3.5 - 5.1 09/19/2013 Normal [facility] CHEMISTRY Sodium Lvl 140 meq/L 135 - 145 09/19/2013 Normal [facility] HEMATOLOGY INR 1.11 0.85 - 1.17 09/19/2013 Normal 3Interpretive Data: RECOMMENDED RANGES FOR PROTIME INR: 2.0-3.0 for most medical and surgical thromboembolic states. 2.5-3.5 for artificial heart valves and recurrent embolism. INR SHOULD BE USED ONLY FOR PATIENTS ON STABLE ANTICOAGULANT THERAPY. [facility] HEMATOLOGY aPTT 29.6 s 22.9 - 35.8 09/19/2013 Normal 4Interpretive Data: Heparin Therapeutic Range: 57 - 92 Seconds [facility] PROTIME 14.2 s 12.0 - 14.7 09/19/2013 Normal [facility] HEMATOLOGY MCV 78.1 fL 80.0 - 94.0 09/19/2013 LOW [facility] MCHC 31.9 g/dL 32.0 - 36.0 09/19/2013 LOW [facility] HEMATOLOGY MCH 24.9 pg 27.0 - 31.0 09/19/2013 LOW [facility] HEMATOLOGY Hct 40.0 % 42.0 - 54.0 09/19/2013 LOW [facility] HEMATOLOGY MPV 6.7 fL 7.4 - 10.4 09/19/2013 LOW [facility] HEMATOLOGY Platelet 451 K/CMM 133 - 450 09/19/2013 HI [facility] HEMATOLOGY RDW 15.1 % 11.5 - 14.5 09/19/2013 HI [facility] HEMATOLOGY RBC X 10x6 5.12 M/CMM 4.70 - 6.10 09/19/2013 Normal [facility] HEMATOLOGY WBC X 10x3 10.0 K/CMM 3.7 - 10.4 09/19/2013 Normal [facility] HEMATOLOGY Hgb 12.8 g/dL 14.0 - 18.0 09/19/2013 LOW [facility] HEMATOLOGY Basophils 0.3 % 0.0 - 1.0 09/19/2013 Normal [facility] HEMATOLOGY Eosinophils # 0.3 K/CMM 0.0 - 0.5 09/19/2013 Normal [facility] HEMATOLOGY Eosinophils 3.3 % 0.0 - 4.0 09/19/2013 Normal [facility] HEMATOLOGY Segs-Bands # 6.8 K/CMM 1.5 - 8.1 09/19/2013 Normal [facility] HEMATOLOGY Basophils # 0.0 K/CMM 0.0 - 0.2 09/19/2013 Normal [facility] HEMATOLOGY Monocytes # 1.2 K/CMM 0.0 - 0.8 09/19/2013 HI [facility] HEMATOLOGY Lymphocytes # 1.6 K/CMM 1.0 - 5.5 09/19/2013 Normal [facility] HEMATOLOGY Segs 67.9 % 45.0 - 75.0 09/19/2013 Normal [facility] HEMATOLOGY Monocytes 12.4 % 2.0 - 12.0 09/19/2013 HI [facility] HEMATOLOGY Lymphocytes 16.1 % 20.0 - 40.0 09/19/2013 LOW [facility] Brain wo contrast CT Brain wo contrast CT EXAM: CT head HISTORY: Persistent headache. TECHNIQUE: Axial noncontrast images of the head FINDINGS: Age-related parenchymal involutional changes and periventricular and subcortical white matter chronic small vessel ischemic changes. No parenchymal edema, mass- effect or midline shift. The ventricles are appropriate size for age. No intracranial hemorrhage or abnormal extra-axial fluid collection seen. No skull fracture seen. The visualized paranasal sinuses and mastoid air cells are clear. Calcifications of the carotid siphons bilaterally. IMPRESSION: No acute intracranial abnormality. SL: 14 09/19/2013 - - Read by: Alejo Moseley Dictated Date/time: 09/19/13 05:05 Electronically Signed by: Alejo Moseley MD 09/19/13 05:07 FINAL REPORT [facility] Vital Signs Vital Sign Value Date Comments Source Weight 185 09/28/2016 [facility] Height 73 09/28/2016 [facility] Heart Rate 72 09/28/2016 [facility] Diastolic (mm Hg) 74 09/28/2016 [facility] Systolic (mm Hg) 122 09/28/2016 [facility] Weight 186 08/25/2016 [facility] Height 73 08/25/2016 [facility] Heart Rate 68 08/25/2016 [facility] Diastolic (mm Hg) 68 08/25/2016 [facility] Systolic (mm Hg) 124 08/25/2016 [facility] Systolic (mm Hg) 172 08/06/2016 [facility] Diastolic (mm Hg) 76 08/06/2016 [facility] Respitory Rate 18 08/06/2016 [facility] Temperature Oral (F) 97.6 F 08/06/2016 [facility] Heart Rate 76 08/06/2016 [facility] Heart Rate 75 08/06/2016 [facility] Systolic (mm Hg) 175 08/06/2016 [facility] Diastolic (mm Hg) 82 08/06/2016 [facility] Respitory Rate 20 08/06/2016 [facility] Heart Rate 53 08/06/2016 [facility] Systolic (mm Hg) 204 08/06/2016 [facility] Diastolic (mm Hg) 78 08/06/2016 [facility] Respitory Rate 18 08/06/2016 [facility] Temperature Oral (F) 97.6 F 08/06/2016 [facility] Temperature Oral (F) 97.7 F 08/06/2016 [facility] BMI Calculated 24.27 08/05/2016 [facility] Weight 83.455 08/05/2016 [facility] Height 185.42 cm 08/05/2016 [facility] Weight 185 08/04/2016 [facility] Height 73 08/04/2016 [facility] Heart Rate 68 08/04/2016 [facility] Diastolic (mm Hg) 68 08/04/2016 [facility] Systolic (mm Hg) 118 08/04/2016 [facility] Respitory Rate 18 02/20/2016 [facility] Systolic (mm Hg) 149 02/20/2016 [facility] Diastolic (mm Hg) 70 02/20/2016 [facility] Heart Rate 85 02/20/2016 [facility] Temperature Oral (F) 98.1 F 02/20/2016 [facility] Systolic (mm Hg) 146 02/16/2016 [facility] Diastolic (mm Hg) 71 02/16/2016 [facility] Respitory Rate 18 02/16/2016 [facility] Temperature Oral (F) 97.9 F 02/16/2016 [facility] Heart Rate 64 02/16/2016 [facility] Systolic (mm Hg) 148 02/06/2016 [facility] Diastolic (mm Hg) 75 02/06/2016 [facility] Heart Rate 66 02/06/2016 [facility] Respitory Rate 18 02/06/2016 [facility] Temperature Oral (F) 98.1 F 02/06/2016 [facility] Height 180.34 cm 01/23/2016 [facility] BMI Calculated 21.1 01/23/2016 [facility] Weight 68.636 01/23/2016 [facility] Weight 146 12/26/2015 [facility] Height 73 12/26/2015 [facility] Heart Rate 78 12/26/2015 [facility] Diastolic (mm Hg) 80 12/26/2015 [facility] Systolic (mm Hg) 130 12/26/2015 [facility] Systolic (mm Hg) 118 11/18/2015 [facility] Height 73 11/18/2015 [facility] Heart Rate 74 11/18/2015 [facility] Diastolic (mm Hg) 64 11/18/2015 [facility] Weight 172 09/12/2015 [facility] Height 73 09/12/2015 [facility] Heart Rate 72 09/12/2015 [facility] Diastolic (mm Hg) 80 09/12/2015 [facility] Systolic (mm Hg) 132 09/12/2015 [facility] Diastolic (mm Hg) 66 09/19/2013 [facility] Heart Rate 65 09/19/2013 [facility] Respitory Rate 18 09/19/2013 [facility] Systolic (mm Hg) 153 09/19/2013 [facility] Temperature Oral (F) 98.2 F 09/19/2013 [facility] Temperature Oral (F) 98.0 F 09/19/2013 [facility] Respitory Rate 20 09/19/2013 [facility] Heart Rate 68 09/19/2013 [facility] Diastolic (mm Hg) 82 09/19/2013 [facility] Systolic (mm Hg) 153 09/19/2013 [facility] Diastolic (mm Hg) 79 09/19/2013 [facility] Systolic (mm Hg) 143 09/19/2013 [facility] Height 185.42 cm 09/19/2013 [facility] Weight 81.818 09/19/2013 [facility] Temperature Oral (F) 98.1 F 09/19/2013 [facility] Heart Rate 60 09/19/2013 [facility] Respitory Rate 20 09/19/2013 [facility] Encounters Location Location Details Encounter Type Encounter Number Reason For Visit Attending Provider ADM Date DC Date Status Source [facility] Emergency [id number] MOLLY POPAT 09/19/2013 09/19/2013 Active [facility] [id number] Abi Fajardo 06/20/2014 06/20/2014 [facility] LEFT SWELLING [id number] 07/30/2015 07/30/2015 [facility] LEFT SWELLING [id number] 07/30/2015 07/30/2015 [facility] LEFT SWELLING [id number] 07/30/2015 07/30/2015 [facility] LEFT SWELLING [id number] 07/30/2015 07/30/2015 [facility] LEFT SWELLING [id number] 07/30/2015 07/30/2015 [facility] LEFT SWELLING [id number] 07/30/2015 07/30/2015 [facility] LEFT SWELLING [id number] 07/30/2015 07/30/2015 [facility] LEFT SWELLING [id number] 07/30/2015 07/30/2015 [facility] LEFT SWELLING [id number] 07/30/2015 07/30/2015 [facility] physical exam/FBW [id number] 08/19/2015 08/19/2015 [facility] physical exam/FBW [id number] 08/19/2015 08/19/2015 [facility] physical exam/FBW [id number] 08/19/2015 08/19/2015 [facility] physical exam/FBW [id number] 08/19/2015 08/19/2015 [facility] physical exam/FBW [id number] 08/19/2015 08/19/2015 [facility] physical exam/FBW [id number] 08/19/2015 08/19/2015 [facility] physical exam/FBW [id number] 08/19/2015 08/19/2015 [facility] physical exam/FBW [id number] 08/19/2015 08/19/2015 [facility] physical exam/FBW [id number] 08/19/2015 08/19/2015 [facility] bumps on left leg around ankle [id number] 09/12/2015 09/12/2015 [facility] bumps on left leg around ankle [id number] 09/12/2015 09/12/2015 [facility] bumps on left leg around ankle [id number] 09/12/2015 09/12/2015 [facility] bumps on left leg around ankle [id number] 09/12/2015 09/12/2015 [facility] bumps on left leg around ankle [id number] 09/12/2015 09/12/2015 [facility] bumps on left leg around ankle [id number] 09/12/2015 09/12/2015 [facility] bumps on left leg around ankle [id number] 09/12/2015 09/12/2015 [facility] bumps on left leg around ankle [id number] 09/12/2015 09/12/2015 [facility] bumps on left leg around ankle [id number] 09/12/2015 09/12/2015 [facility] REF-MEDS [id number] 09/22/2015 09/22/2015 [facility] REF-MEDS [id number] 09/22/2015 09/22/2015 [facility] REF-MEDS [id number] 09/22/2015 09/22/2015 [facility] REF-MEDS [id number] 09/22/2015 09/22/2015 [facility] REF-MEDS [id number] 09/22/2015 09/22/2015 [facility] REF-MEDS [id number] 09/22/2015 09/22/2015 [facility] REF-MEDS [id number] 09/22/2015 09/22/2015 [facility] REF-MEDS [id number] 09/22/2015 09/22/2015 [facility] follow up [id number] 11/18/2015 11/18/2015 [facility] follow up [id number] 11/18/2015 11/18/2015 [facility] follow up [id number] 11/18/2015 11/18/2015 [facility] follow up [id number] 11/18/2015 11/18/2015 [facility] follow up [id number] 11/18/2015 11/18/2015 [facility] follow up [id number] 11/18/2015 11/18/2015 [facility] follow up [id number] 11/18/2015 11/18/2015 [facility] xray results [id number] 12/26/2015 12/26/2015 [facility] xray results [id number] 12/26/2015 12/26/2015 [facility] xray results [id number] 12/26/2015 12/26/2015 [facility] xray results [id number] 12/26/2015 12/26/2015 [facility] xray results [id number] 12/26/2015 12/26/2015 [facility] xray results [id number] 12/26/2015 12/26/2015 [facility] Unknown [id number] 01/13/2016 01/13/2016 [facility] Unknown [id number] 01/13/2016 01/13/2016 [facility] Unknown [id number] 01/13/2016 01/13/2016 [facility] Unknown [id number] 01/13/2016 01/13/2016 [facility] Unknown [id number] 01/13/2016 01/13/2016 [facility] OP Recurring [id number] Sahba Maxwell 01/26/2016 02/25/2016 [facility] Unknown [id number] 08/04/2016 08/04/2016 [facility] Unknown [id number] 08/04/2016 08/04/2016 [facility] Unknown [id number] 08/04/2016 08/04/2016 [facility] Unknown [id number] 08/04/2016 08/04/2016 [facility] Observation [id number] Margret German 08/04/2016 08/06/2016 [facility] FOLLOW UP FROM HOSPITALIZATION [id number] 08/25/2016 08/25/2016 [facility] FOLLOW UP FROM HOSPITALIZATION [id number] 08/25/2016 08/25/2016 [facility] FOLLOW UP FROM HOSPITALIZATION [id number] 08/25/2016 08/25/2016 [facility] follow up from test results [id number] 09/28/2016 09/28/2016 [facility] follow up from test results [id number] 09/28/2016 09/28/2016 [facility] [id number] Rina Burger 10/18/2016 10/19/2016 [facility] Unknown [id number] 11/29/2016 11/29/2016 [facility] Procedures Procedure Code Date Perfomer Comments Source
--- OUTSIDE RECORDS SUMMARY | 2019-01-01 12:50 | XMS REPORT | Summary of Care ---
Author Organization Unknown Address Unknown Phone Unavailable Encounter [facility] Encntr_alias([facility]) [id number] Date(s): 06/19/14 - 06/20/[address] [address] [facility] [phone] Discharge Disposition: Home Physician Attending: Abi Fajardo MD Physician_Referring: Abi Fajardo MD Reason for Visit APNEA Problem List Condition Effective Dates Status Health Status Informant Cholesterol(Confirme Resolved d) Diabetes Resolved mellitus(Confirmed) GERD - Resolved Gastro-esophageal reflux disease(Confirmed) Hypertension(Confirm Resolved ed) Allergies, Adverse Reactions, Alerts Substance Reaction Severity Status NKDA Active Medications No data available for this section Medications Administered During Your Visit No data available for this section Immunizations No data available for this section
--- OUTSIDE RECORDS SUMMARY | 2019-01-01 12:50 | XMS REPORT | Summary of Care ---
Author Author [facility] Organization [facility] Address Unknown Phone Unavailable Encounter HQ Maribeth(FERNANDO) [id number] Date(s): 08/04/16 - 08/06/16 [facility] [address] [place] [address]- [phone] Discharge Disposition: Home or Self Care Attending Physician: Margret German MD Admitting Physician: Margret German MD Vital Signs 1 2 3 Most recent to oldest [Reference Range]: 185.42 cm (08/04/16 7:45 PM) Height 97.6 DegF (08/06/16 4:29 PM) 97.6 DegF (08/06/16 4:11 AM) 97.7 DegF (08/06/16 12:06 AM) Temperature Oral [96.4-99.1 DegF] 172/76 mmHg *HI* (08/06/16 4:29 PM) 175/82 mmHg *HI* (08/06/16 11:41 AM) 204/78 mmHg *HI* (08/06/16 11:25 AM) Blood Pressure [90-140/60-90 mmHg] 18 BRMIN (08/06/16 4:29 PM) 20 BRMIN (08/06/16 11:41 AM) 18 BRMIN (08/06/16 11:25 AM) Respiratory Rate [14-20 BRMIN] 76 bpm (08/06/16 4:29 PM) 75 bpm (08/06/16 11:41 AM) 53 bpm *LOW* (08/06/16 11:25 AM) Peripheral Pulse Rate [60-100 bpm] 83.455 kg (08/04/16 7:45 PM) Weight 24.27 m2 (08/04/16 7:45 PM) Body Mass Index Problem List Condition Effective Dates Status Health Status Informant Cholesterol(Confirme Resolved d) Crohn's disease of Resolved intestine(Confirmed) Diabetes Resolved mellitus(Confirmed) Laryngeal Resolved mass(Confirmed) GERD - Resolved Gastro-esophageal reflux disease(Confirmed) Hypertension(Confirm Resolved ed) Anemia, iron Resolved deficiency(Confirmed ) Allergies, Adverse Reactions, Alerts Substance Reaction Severity Status NKDA Active Medications D5NS + KCL 20mEq/L 1000ml (Premix) 1,000 mL 1,000 mL, Rate: 75 ml/hr, Infuse over: 13.3 hr, Route: IV, Dosing Weight 68.636 kg, Total Volume: 1,000, Start date: 08/04/16 17:26:00 CDT, Duration: 30 day, St op date: 09/03/16 17:25:00 CDT Notes: PREMIX IV - Do Not AlterWASTE: F/P - Sink; E - Municipal Trash Bin Start Date: 08/04/16 Stop Date: 08/06/16 Status: Discontinued Dextrose 50% Syringe 12.5 gm, 25 mL, Route: IVP, Drug Form: INJ, Dosing Weight 68.636, kg, PRN, PRN B lood Glucose Results, Start date: 08/04/16 17:27:00 CDT, Duration: 30 day, Stop date: 09/03/16 17:26:00 CDT Start Date: 08/04/16 Stop Date: 08/06/16 Status: Discontinued Dextrose 50% Syringe 25 gm, 50 mL, Route: IVP, Drug Form: INJ, Dosing Weight 68.636, kg, PRN, PRN Blo od Glucose Results, Start date: 08/04/16 17:27:00 CDT, Duration: 30 day, Stop da te: 09/03/16 17:26:00 CDT Start Date: 08/04/16 Stop Date: 08/06/16 Status: Discontinued ferrous sulfate 325 mg, 1 tab, Route: PO, Drug form: ECTAB, Daily, Dosing Weight 83.455, kg, Sta rt date: 08/06/16 9:00:00 CDT, Duration: 30 day, Stop date: 09/04/16 9:00:00 CDT Notes: Give with food. "Do Not Crush" Start Date: 08/06/16 Stop Date: 08/06/16 Status: Discontinued glucagon 1 mg, Route: IM, Drug form: PDR/INJ, PRN, Dosing Weight 68.636, kg, PRN Blood Gl ucose Results, Start date: 08/04/16 17:27:00 CDT, Duration: 30 day, Stop date: 1 11/03/15 17:26:00 CDT Start Date: 08/04/16 Stop Date: 08/06/16 Status: Discontinued GoLYTELY 4,000 ml, Route: PO, Drug Form: PDR/REC, Dosing Weight 83.455, kg, ONCE, Start d ate: 08/05/16 18:15:00 CDT, Duration: 1 doses or times, Stop date: 08/05/16 18:1 5:00 CDT Notes: (polyethylene glycol electrolyte solution 4 Liter bottle) (Same as: Duran mixonelyAnnie) Start Date: 08/05/16 Stop Date: 08/05/16 Status: Completed insulin aspart 4 unit, 0.04 mL, Route: SUB-Q, Drug form: SOLN, Bedtime, Dosing Weight 68.636, k g, PRN Blood Glucose Results, Start date: 08/04/16 17:27:00 CDT, Duration: 30 da y, Stop date: 09/03/16 17:26:00 CDT Notes: Roll in palms of hands gently; Do not shake vigorously. (Same as: April Gonzalez)"single patient use only"WASTE: F/P - Black; E - Municipal Trash Bin Stable f or 28 days at room temperature.Expires in days from Date Start Date: 08/04/16 Stop Date: 08/06/16 Status: Discontinued insulin aspart 3 unit, 0.03 mL, Route: SUB-Q, Drug form: SOLN, Bedtime, Dosing Weight 68.636, k g, PRN Blood Glucose Results, Start date: 08/04/16 17:27:00 CDT, Duration: 30 da y, Stop date: 09/03/16 17:26:00 CDT Notes: Roll in palms of hands gently; Do not shake vigorously. (Same as: April Gonzalez)"single patient use only"WASTE: F/P - Black; E - Municipal Trash Bin Stable f or 28 days at room temperature.Expires in days from Date Start Date: 08/04/16 Stop Date: 08/06/16 Status: Discontinued insulin aspart 2 unit, 0.02 mL, Route: SUB-Q, Drug form: SOLN, Bedtime, Dosing Weight 68.636, k g, PRN Blood Glucose Results, Start date: 08/04/16 17:27:00 CDT, Duration: 30 da y, Stop date: 09/03/16 17:26:00 CDT Notes: Roll in palms of hands gently; Do not shake vigorously. (Same as: April Gonzalez)"single patient use only"WASTE: F/P - Black; E - Municipal Trash Bin Stable f or 28 days at room temperature.Expires in days from Date Start Date: 08/04/16 Stop Date: 08/06/16 Status: Discontinued insulin aspart 1 unit, 0.01 mL, Route: SUB-Q, Drug form: SOLN, Bedtime, Dosing Weight 68.636, k g, PRN Blood Glucose Results, Start date: 08/04/16 17:27:00 CDT, Duration: 30 da y, Stop date: 09/03/16 17:26:00 CDT Notes: Roll in palms of hands gently; Do not shake vigorously. (Same as: April Gonzalez)"single patient use only"WASTE: F/P - Black; E - Municipal Trash Bin Stable f or 28 days at room temperature.Expires in days from Date Start Date: 08/04/16 Stop Date: 08/06/16 Status: Discontinued insulin aspart 3 unit, 0.03 mL, Route: SUB-Q, Drug form: SOLN, TID-Before Meals, Dosing Weight 68.636, kg, PRN Blood Glucose Results, Start date: 08/04/16 17:27:00 CDT, Durati on: 30 day, Stop date: 09/03/16 17:26:00 CDT Notes: Roll in palms of hands gently; Do not shake vigorously. (Same as: NovoLO G)"single patient use only"WASTE: F/P - Black; E - Municipal Trash Bin Stable f or 28 days at room temperature.Expires in days from Date Start Date: 08/04/16 Stop Date: 08/06/16 Status: Discontinued insulin aspart 2 unit, 0.02 mL, Route: SUB-Q, Drug form: SOLN, TID-Before Meals, Dosing Weight 68.636, kg, PRN Blood Glucose Results, Start date: 08/04/16 17:27:00 CDT, Durati on: 30 day, Stop date: 09/03/16 17:26:00 CDT Notes: Roll in palms of hands gently; Do not shake vigorously. (Same as: NovoJESI Gonzalez)"single patient use only"WASTE: F/P - Black; E - Municipal Trash Bin Stable f or 28 days at room temperature.Expires in days from Date Start Date: 08/04/16 Stop Date: 08/06/16 Status: Discontinued insulin aspart 5 unit, 0.05 mL, Route: SUB-Q, Drug form: SOLN, TID-Before Meals, Dosing Weight 68.636, kg, PRN Blood Glucose Results, Start date: 08/04/16 17:27:00 CDT, Durati on: 30 day, Stop date: 09/03/16 17:26:00 CDT Notes: Roll in palms of hands gently; Do not shake vigorously. (Same as: NovoJESI Gonzalez)"single patient use only"WASTE: F/P - Black; E - Municipal Trash Bin Stable f or 28 days at room temperature.Expires in days from Date Start Date: 08/04/16 Stop Date: 08/06/16 Status: Discontinued insulin aspart 1 unit, 0.01 mL, Route: SUB-Q, Drug form: SOLN, TID-Before Meals, Dosing Weight 68.636, kg, PRN Blood Glucose Results, Start date: 08/04/16 17:27:00 CDT, Durati on: 30 day, Stop date: 09/03/16 17:26:00 CDT Notes: Roll in palms of hands gently; Do not shake vigorously. (Same as: April Gonzalez)"single patient use only"WASTE: F/P - Black; E - Municipal Trash Bin Stable f or 28 days at room temperature.Expires in days from Date Start Date: 08/04/16 Stop Date: 08/06/16 Status: Discontinued insulin aspart 4 unit, 0.04 mL, Route: SUB-Q, Drug form: SOLN, TID-Before Meals, Dosing Weight 68.636, kg, PRN Blood Glucose Results, Start date: 08/04/16 17:27:00 CDT, Durati on: 30 day, Stop date: 09/03/16 17:26:00 CDT Notes: Roll in palms of hands gently; Do not shake vigorously. (Same as: April Gonzalez)"single patient use only"WASTE: F/P - Black; E - Municipal Trash Bin Stable f or 28 days at room temperature.Expires in days from Date Start Date: 08/04/16 Stop Date: 08/06/16 Status: Discontinued iron sulfate (ferrous sulfate) 325 mg oral tablet 325 mg=1 tab, PO, Daily, 0 Refill(s) Start Date: 08/04/16 Status: Ordered lisinopril 5 mg, 1 tab, Route: PO, Drug form: TAB, Daily, Dosing Weight 83.455, kg, Start d ate: 08/06/16 9:00:00 CDT, Duration: 30 day, Stop date: 09/04/16 9:00:00 CDT Notes: (Same as: Prinivfatoumata Zestril) Start Date: 08/06/16 Stop Date: 08/06/16 Status: Discontinued lisinopril 5 mg oral tablet 5 mg=1 tab, PO, Daily, 0 Refill(s) Start Date: 08/04/16 Status: Ordered mesalamine 1.5 gm, PO, Daily, 0 Refill(s) Start Date: 08/04/16 Status: Ordered multivitamin 1 tablet, PO, Daily, 0 Refill(s) Start Date: 08/04/16 Status: Ordered Non-Formulary Home Medication 2 tablets, PO, Daily, Refill(s) 0 Start Date: 08/04/16 Status: Ordered predniSONE 40 mg, 2 tab, Route: PO, Drug form: TAB, Daily, Dosing Weight 83.455, kg, Start date: 08/06/16 9:00:00 CDT, Duration: 30 day, Stop date: 09/04/16 9:00:00 CDT Notes: Take with food. Start Date: 08/06/16 Stop Date: 08/06/16 Status: Discontinued predniSONE 7.5 mg, 3 tab, Route: PO, Drug form: TAB, Daily, Dosing Weight 83.455, kg, Start date: 08/06/16 9:00:00 CDT, Duration: 30 day, Stop date: 09/04/16 9:00:00 CDT Notes: Take with food. Start Date: 08/06/16 Stop Date: 08/06/16 Status: Canceled predniSONE 10 mg oral tablet See Instructions, Take 4 tabs x 10days, 3 tabs x 10 adys, 2 tabs x 10 days, then 1 tab x 10days., # 100 tab, 0 Refill(s) Start Date: 08/06/16 Stop Date: 09/06/16 Status: Ordered predniSONE 5 mg oral tablet 7.5 mg=1.5 tab, PO, Daily, 0 Refill(s) Start Date: 08/04/16 Stop Date: 08/06/16 Status: Discontinued Saline Flush 0.9% 10 ml, Route: IVP, Drug Form: INJ, Dosing Weight 68.636, kg, PRN, PRN Line Flush , Start date: 08/04/16 17:26:00 CDT, Duration: 30 day, Stop date: 09/03/16 17:25 :00 CDT Notes: (Same as: BD Posiflush) Start Date: 08/04/16 Stop Date: 08/06/16 Status: Discontinued simvastatin 40 mg, 1 tab, Route: PO, Drug form: TAB, Bedtime, Dosing Weight 83.455, kg, Star t date: 08/05/16 21:00:00 CDT, Duration: 30 day, Stop date: 09/03/16 21:00:00 CD T Notes: (Same as: Zocor) Start Date: 08/05/16 Stop Date: 08/06/16 Status: Discontinued sodium chloride 0.9% 1000 ml INJ 1,000 mL 1,000 mL, Rate: 25 ml/hr, Infuse over: 40 hr, Route: IV, Dosing Weight 83.455 kg , Total Volume: 1,000, Start date: 08/06/16 7:53:00 CDT, Duration: 30 day, Stop date: 09/05/16 7:52:00 METAL MIXER Start Date: 08/06/16 Stop Date: 08/06/16 Status: Discontinued sodium chloride 0.9% INJ 250 mL 250 mL, Rate: call center associate for use with blood product administration, Dosing Weight 6 8.636, kg, Route: IV, Total Volume: 250, Start Date: 08/04/16 17:26:00 CDT, Dura tion: 1 day, Stop date: 08/05/16 17:25:00 CDT, Replace Every: 24 hr Start Date: 08/04/16 Stop Date: 08/05/16 Status: Completed Results BLOOD BANK RESULTS 1 2 3 Most recent to oldest [Reference Range]: B POS *Unknown* (08/04/16 8:26 PM) ABO/Rh Negative (08/04/16 8:26 PM) Antibody Scrn ELECTROLYTES 1 2 3 Most recent to oldest [Reference Range]: 140 mEq/L (08/06/16 6:33 AM) 139 mEq/L (08/05/16 5:14 AM) 135 mEq/L (08/04/16 8:26 PM) Sodium Lvl [135-145 mEq/L] 4.2 mEq/L (08/06/16 6:33 AM) 4.7 mEq/L (08/05/16 5:14 AM) 4.8 mEq/L (08/04/16 8:26 PM) Potassium Lvl [3.5-5.1 mEq/L] 105 mEq/L (08/06/16 6:33 AM) 104 mEq/L (08/05/16 5:14 AM) 100 mEq/L (08/04/16 8:26 PM) Chloride Lvl [95-109 mEq/L] 28 mEq/L (08/06/16 6:33 AM) 31 mEq/L (08/05/16 5:14 AM) 30 mEq/L (08/04/16 8:26 PM) CO2 [24-32 mEq/L] 11.2 mEq/L (08/06/16 6:33 AM) 8.7 mEq/L *LOW* (08/05/16 5:14 AM) 9.8 mEq/L *LOW* (08/04/16 8:26 PM) AGAP [10.0-20.0 mEq/L] CHEM PANEL 1 2 3 Most recent to oldest [Reference Range]: 1.10 mg/dL (08/06/16 6:33 AM) 1.00 mg/dL (08/05/16 5:14 AM) 1.20 mg/dL (08/04/16 8:26 PM) Creatinine Lvl [0.50-1.40 mg/dL] 78 mL/min/1.73m2 1 *NA* (08/06/16 6:33 AM) 87 mL/min/1.73m2 2 *NA* (08/05/16 5:14 AM) 70 mL/min/1.73m2 3 *NA* (08/04/16 8:26 PM) eGFR 9 mg/dL (08/06/16 6:33 AM) 19 mg/dL (08/05/16 5:14 AM) 21 mg/dL (08/04/16 8:26 PM) BUN [7-22 mg/dL] 18 (08/04/16 8:26 PM) B/C Ratio [6-25] 123 mg/dL *HI* (08/06/16 6:33 AM) 115 mg/dL *HI* (08/05/16 5:14 AM) 111 mg/dL *HI* (08/04/16 8:26 PM) Glucose Lvl [70-99 mg/dL] 7.6 g/dL (08/04/16 8:26 PM) Total Protein [6.4-8.4 g/dL] 3.5 g/dL (08/04/16 8:26 PM) Albumin Lvl [3.5-5.0 g/dL] 4.1 g/dL (08/04/16 8:26 PM) Globulin [2.7-4.2 g/dL] 0.9 (08/04/16 8:26 PM) A/G Ratio [0.7-1.6] 9.0 mg/dL (08/06/16 6:33 AM) 9.0 mg/dL (08/05/16 5:14 AM) 9.4 mg/dL (08/04/16 8:26 PM) Calcium Lvl [8.5-10.5 mg/dL] 19 unit/L (08/04/16 8:26 PM) ALT [0-65 unit/L] 19 unit/L (08/04/16 8:26 PM) AST [0-37 unit/L] 108 unit/L (08/04/16 8:26 PM) Alk Phos [39-136 unit/L] 0.4 mg/dL (08/04/16 8:26 PM) Bili Total [0.2-1.3 mg/dL] 1Result Comment: The eGFR is calculated using [...] be mul tiplied by the estimated BMI. 2Result Comment: The eGFR is calculated using the [...] be mul tiplied by the estimated BMI. 3Result Comment: The eGFR is calculated using the [...] be mul tiplied by the estimated BMI. IMMUNOLOGY 1 2 3 Most recent to oldest [Reference Range]: 7.9 mg/L *HI* (08/05/16 5:00 AM) CRP [<=2.9 mg/L] HEMATOLOGY 1 2 3 Most recent to oldest [Reference Range]: 8.4 K/CMM (08/06/16 6:33 AM) 7.5 K/CMM (08/05/16 5:14 AM) 11.4 K/CMM *HI* (08/04/16 8:26 PM) WBC [3.7-10.4 K/CMM] 4.51 M/CMM *LOW* (08/06/16 6:33 AM) 4.32 M/CMM *LOW* (08/05/16 5:14 AM) 4.84 M/CMM (08/04/16 8:26 PM) RBC [4.70-6.10 M/CMM] 11.5 g/dL *LOW* (08/06/16 6:33 AM) 11.3 g/dL *LOW* (08/05/16 5:14 AM) 12.5 g/dL *LOW* (08/04/16 8:26 PM) Hgb [14.0-18.0 g/dL] 36.4 % *LOW* (08/06/16 6:33 AM) 34.6 % *LOW* (08/05/16 5:14 AM) 38.7 % *LOW* (08/04/16 8:26 PM) Hct [42.0-54.0 %] 80.6 fL (08/06/16 6:33 AM) 80.2 fL (08/05/16 5:14 AM) 79.8 fL *LOW* (08/04/16 8:26 PM) MCV [80.0-94.0 fL] 25.5 pg *LOW* (08/06/16 6:33 AM) 26.2 pg *LOW* (08/05/16 5:14 AM) 25.8 pg *LOW* (08/04/16 8:26 PM) MCH [27.0-31.0 pg] 31.6 g/dL *LOW* (08/06/16:33 AM) 32.6 g/dL (08/05/16 5:14 AM) 32.3 g/dL (08/04/16 8:26 PM) MCHC [32.0-36.0 g/dL] 15.1 % *HI* (08/06/16 6:33 AM) 14.9 % *HI* (08/05/16 5:14 AM) 15.1 % *HI* (08/04/16 8:26 PM) RDW [11.5-14.5 %] 358 K/CMM (08/06/16 6:33 AM) 327 K/CMM (08/05/16 5:14 AM) 369 K/CMM (08/04/16 8:26 PM) Platelet [133-450 K/CMM] 7.1 fL *LOW* (08/06/16:33 AM) 7.0 fL *LOW* (08/05/16 5:14 AM) 7.7 fL (08/04/16 8:26 PM) MPV [7.4-10.4 fL] 56.5 % (08/06/16 6:33 AM) 67.7 % (08/04/16 8:26 PM) Segs [45.0-75.0 %] 31.7 % (08/06/16 6:33 AM) 23.8 % (08/04/16 8:26 PM) Lymphocytes [20.0-40.0 %] 9.4 % (08/06/16 6:33 AM) 7.2 % (08/04/16 8:26 PM) Monocytes [2.0-12.0 %] 1.8 % (08/06/16 6:33 AM) 0.8 % (08/04/16 8:26 PM) Eosinophils [0.0-4.0 %] 0.6 % (08/06/16 6:33 AM) 0.5 % (08/04/16 8:26 PM) Basophils [0.0-1.0 %] 4.8 K/CMM (08/06/16:33 AM) 7.7 K/CMM (08/04/16 8:26 PM) Segs-Bands # [1.5-8.1 K/CMM] 2.7 K/CMM (08/06/16:33 AM) 2.7 K/CMM (08/04/16 8:26 PM) Lymphocytes # [1.0-5.5 K/CMM] 0.8 K/CMM (08/06/16:33 AM) 0.8 K/CMM (08/04/16 8:26 PM) Monocytes # [0.0-0.8 K/CMM] 0.2 K/CMM (08/06/16:33 AM) 0.1 K/CMM (08/04/16 8:26 PM) Eosinophils # [0.0-0.5 K/CMM] 0.1 K/CMM (08/06/16:33 AM) 0.1 K/CMM (08/04/16 8:26 PM) Basophils # [0.0-0.2 K/CMM] 24 mm/hr *HI* (08/05/16 5:00 AM) Sed Rate [0-15 mm/hr] 14.5 seconds (08/06/16:33 AM) 14.5 seconds (08/04/16 8:26 PM) PT [12.0-14.7 seconds] 1.11 (08/06/16 6:33 AM) 1.11 (08/04/16 8:26 PM) INR [0.85-1.17] 26.0 seconds (08/06/16 6:33 AM) 26.0 seconds (08/04/16 8:26 PM) PTT [22.9-35.8 seconds] MOLECULAR DIAGNOSTIC 1 2 3 Most recent to oldest [Reference Range]: Negative (08/05/16 10:46 AM) C difficile DNA [Negative] Immunizations No data available for this section Procedures No data available for this section Social History Social History Type Response Substance Abuse Use: None. Alcohol Past Smoking Status Former smoker; Exposure to Tobacco Smoke None; Cigarette Smoking Last 365 Days No; Reg Smoking Cessation Counseling Yes Assessment and Plan Extracted from: Title: Clinical Document Author: Rina Burger MD Date: 08/06/16 Progress Note Gastroenterology and Hepatology ASSESSMENT /PLAN: A 71-year-old male with history of Crohn's colitis, admitted with GI bleed and a 3 gram drop in hemoglobin, CT scan with procitis, COLONOSCOPY today with moderate to severe right sided colitis, likely UC flare up -DC home with oral steroids on top of existing mesalamine -Will need to discuss escalation of therapy in office ; f/u 1-2 weeks. SUBJECTIVE: Patient seen and examined at bedside. Events of the day reviewed with nursing staff. No new complaints. Review of Systems: (-)=Negative,(+)=Positive 1) Const: (-) fever, (-) weight change 2) Skin: (-) rash, (-) bleeding 3) HEENT: (-) difficulty swallowing, (-) swelling 4) Eyes: (-) vision changes, (-) bleeding 5) Neuro: (-) weakness, (-) headaches 6) Resp: (-) dyspnea on exertion, (-) cough 7) Cardio: (-) chest pain, (-) orthopnea 8) GI: (-) blood in stool, (-) reflux 9) : (-) dysuria, (-) bloody discharge 10) Endo: (-) heat intolerance, (-) cold intolerance OBJECTIVE: Vitals: See below General: Alert , Oriented x 3 CVS: s1s2 RRR Resp: CTA Bilaterally Abd : Soft, NT, ND , BS + Ext : no edema ENGRAVER JEWELRY: No gross motor/sensory defects VitalsTmp(F)Tmp(C)RslgiQXYDXGlpdsDZBhL4USA3VZGA9 08/06 08:5598.136.51zhvh758/[id number]------ 10/07 07:4798.236.44wmwr784/76---[id number]------ 08/06 04:1197.636.42toqj091/75---[id number]------ 08/06 00:0697.736.29hjed634/80---[id number]------ 08/05 20:1097.636.68cjth560/75---[id number]------ 24 Hr Tmax: 98.2F (36.78c) at 08/06 07:47Vital Signs are the last 5 in the past 48 hours. 24 Hr Tmin: 97.6F (36.44c) at 08/06 04:11Weights are the last 5 in 60 days, plus initial. DateWt(kg)Wt(lb)Ht(cm)Ht(in)MethodBMI 08/04 (initial) 83.45 183.60Measured 24.3 08/04185.42 73.00Stated Most Recent Scores: 08/06/16Pain Intensity NRS (0-10)0 08/05/16Braden Score21 08/05/16Glasgow Coma Score15 08/05/16[place] Fall Score6 Lines, Tubes, and Drains: 08/04/2016 21:35 Peripheral Lines: Hand Right 22 gauge Over the needle catheter Surgical Procedures: 08/06/16 08:37MOVE FROM 0730 TO 0800 PER OA/COLON / MAC [id number] Surgeon: Rina Burger MD (Service: END) I&ORecordInOutBal 07/624hr Tot 5000 500 4500 07/524hr Tot 919 0 919 24hr Labs 08/06 644 Glucose GDG000 H 08/06 633 Glucose Gpi349 H BUN9 Creatinine Lvl1.10 Sodium Oac229 Potassium Lvl4.2 Chloride Dyi823 CO228 AGAP11.2 Calcium Lvl9.0 eGFR78 WBC8.4 RBC4.51 L Hgb11.5 L Hct36.4 L MCV80.6 MCH25.5 L MCHC31.6 L RDW15.1 H Ksltzmhg685 MPV7.1 L Segs56.5 Monocytes9.4 Ltawmhyyenh85.7 Eosinophils1.8 Basophils0.6 Segs-Bands #4.8 Lymphocytes #2.7 Monocytes #0.8 Eosinophils #0.2 Basophils #0.1 PT14.5 INR1.11 PTT26.0 08/06 0350 Glucose RPP327 H 08/05 2109 Glucose EMO866 H 08/05 1721 Glucose YAG173 H 08/05 1231 Glucose LVC305 H 08/05 1046 C difficile DNANegative Scheduled Meds (4): ferrous sulfate 325 mg PO Daily [eMAR Schedule: (08/06/16) 09:00] [Future Dose: 08/07/16 09:00] lisinopril 5 mg PO Daily [eMAR Schedule: (08/06/16) 09:00] [Future Dose: 08/07/16 09:00] predniSONE 40 mg PO Daily [Last Rescheduled Dt/Tm: 08/07/16 9:00:00 CDT] [eMAR Schedule: (08/06/16) 09:00] [Future Dose: 08/07/16 09:00] simvastatin 40 mg PO Bedtime [Future Dose: 08/06/16 21:00] Unscheduled Meds: None PRN Meds (13): Dextrose 50% in Water IV (Dextrose 50% Syringe) 12.5 gm IVP PRN Dextrose 50% in Water IV (Dextrose 50% Syringe) 25 gm IVP PRN glucagon 1 mg IM PRN insulin aspart 1 unit SUB-Q TID-Before Meals insulin aspart 2 unit SUB-Q TID-Before Meals insulin aspart 3 unit SUB-Q TID-Before Meals insulin aspart 4 unit SUB-Q TID-Before Meals insulin aspart 5 unit SUB-Q TID-Before Meals insulin aspart 1 unit SUB-Q Bedtime insulin aspart 2 unit SUB-Q Bedtime insulin aspart 3 unit SUB-Q Bedtime insulin aspart 4 unit SUB-Q Bedtime sodium chloride (Saline Flush 0.9%) 10 ml IVP PRN One Time Meds (1): (Completed) polyethylene glycol 3350 with electrolytes (GoLYTELY) 4,000 ml PO ONCE Continuous Infusions (1): D5NS + KCL 20mEq/L 1000ml (Premix) 1,000 mL 1,000 mL 75 ml/hr Stool Color: Black, Blood-tinged Stool Description: Watery/Runny Type of Bladder Control: Voluntary Type of Urinary Elimination: Continent
--- OUTSIDE RECORDS SUMMARY | 2019-01-01 12:51 | XMS REPORT ---
Author Author Valarie Lam [facility] eClinicalWorks Address Unknown Phone Unavailable Care Team Providers Care Kiln Setter Name Role Phone Valarie Lam Unavailable Encounters Encounter Location Date REF-MEDS [facility] Sep 22, 2015 follow up [facility] Nov 18, 2015 xray results [facility] Dec 26, 2015 Unknown [facility] January 13, 2016 LEFT SWELLING [facility] Jul 30, 2015 Unknown [facility] Nov 29, 2016 physical exam/FBW [facility] Aug 19, 2015 bumps on left leg around ankle [facility] Sep 12, 2015 follow up from test results [facility] Sep 28, 2016 Unknown [facility] Aug 04, 2016 FOLLOW UP FROM HOSPITALIZATION [facility] Aug 25, 2016 Problems Problem Type Condition ICD-9 Code Onset Dates Condition Status Problem Elevated antinuclear antibody (JOJO) level R76.8 Active Problem Acute right ankle pain M25.571 Active Problem Skin lesion L98.9 Active Problem Abnormal weight loss R63.4 Active Problem Atrophy of muscle of extremity M62.58 Active Problem Closed fracture of distal end of left fibula, unspecified fracture morphology, initial encounter S82.832A Active Problem Ankle swelling, right M25.471 Active Problem Acute left ankle pain M25.572 Active Problem Underweight R63.6 Active Problem Ankle swelling, left M25.472 Active Problem Crohns disease of both small and large intestine without complication K50.80 Active Problem GERD (gastroesophageal reflux disease) K21.9 Active Problem Type 2 diabetes mellitus without complication E11.9 Active Problem Microcytic anemia D50.9 Active Problem AGUSTIN (obstructive sleep apnea) G47.33 Active Problem BMI less than 19,adult Z68.1 Active Problem Mixed hyperlipidemia E78.2 Active Problem Iron deficiency E61.1 Active Medications Medication Code System Code Instructions Start Date End Date Status Dosage Humira MEDISPAN [address]-73 40 MG/0.8ML Subcutaneous Nov 29, 2016 December 29, 2016 Active 0.8 ml Social History Social History Element Qualifiers Date Reported Fall Risk: . none in the past year Sep 28, 2016 Depression Screening: . negative 07/30/15 Sep 28, 2016 Flu Vaccine: . 2014Sep 28, 2016 Last Bone Density: . never Sep 28, 2016 Last Colonoscopy: . 2013 - normal Sep 28, 2016 children . 3 Sep 28, 2016 Tobacco Use: . Are you a: never smoker Sep 28, 2016 Marital Status: . Sep 28, 2016 Do you drink alcohol? . Status: No Sep 28, 2016 Occupation: employed. Upholstery Sep 28, 2016 Summary Purpose eClinicalWorks Submission
--- OUTSIDE RECORDS SUMMARY | 2019-01-01 12:51 | XMS REPORT ---
Author Author Valarie Lam [facility] eClinicalWorks Address Unknown Phone Unavailable Care Team Providers Care Heavy Equipment Supervisor Name Role Phone Valarie Lam CP Unavailable Allergies, Adverse Reactions, Alerts Substance Reaction Event Type N.K.D.A. Info Not Available Non Drug Allergy Encounters Encounter Location Date REF-MEDS [facility] Sep 22, 2015 follow up [facility] Nov 18, 2015 xray results [facility] Dec 26, 2015 LEFT SWELLING [facility] Jul 30, 2015 physical exam/FBW [facility] Aug 19, 2015 bumps on left leg around ankle [facility] Sep 12, 2015 Problems Problem Type Condition ICD-9 Code Onset Dates Condition Status Problem Elevated antinuclear antibody (JOJO) level R76.8 Active Problem Acute right ankle pain M25.571 Active Problem Skin lesion L98.9 Active Problem Abnormal weight loss R63.4 Active Assessment Atrophy of muscle of extremity M62.58 Active Problem Atrophy of muscle of extremity M62.58 Active Assessment Underweight R63.6 Active Problem Closed fracture of distal end of left fibula, unspecified fracture morphology, initial encounter S82.832A Active Problem Ankle swelling, right M25.471 Active Problem Acute left ankle pain M25.572 Active Problem Underweight R63.6 Active Problem Ankle swelling, left M25.472 Active Assessment Closed fracture of distal end of left fibula, unspecified fracture morphology, initial encounter S82.832A Active Problem GERD (gastroesophageal reflux disease) K21.9 Active Assessment Abnormal weight loss R63.4 Active Assessment Elevated antinuclear antibody (JOJO) level R76.8 Active Problem Type 2 diabetes mellitus without complication E11.9 Active Problem Microcytic anemia D50.9 Active Problem AGUSTIN (obstructive sleep apnea) G47.33 Active Problem BMI less than 19,adult Z68.1 Active Problem Mixed hyperlipidemia E78.2 Active Problem Iron deficiency E61.1 Active Medications Medication Code System Code Instructions Start Date End Date Status Dosage Metformin HCl [facility] [address]-37 850 mg BID Active 1 tablet Lisinopril [facility] [address]-52 2.5 mg daily Active 1 tablet Tramadol HCl [facility] [address]-51 50 MG Orally every 6 hrs Active 1 tablet as needed Simvastatin [facility] [address]-77 40 mg daily Active 1 tablet Social History Social History Element Qualifiers Date Reported Fall Risk: . none in the past year Dec 26, 2015 Depression Screening: . negative 07/30/15 Dec 26, 2015 Flu Vaccine: . 2014Dec 26, 2015 Last Bone Density: . never Dec 26, 2015 Last Colonoscopy: . 2013 - normal Dec 26, 2015 children . 3 Dec 26, 2015 Tobacco Use: . Are you a: never smoker Dec 26, 2015 Marital Status: . Dec 26, 2015 Do you drink alcohol? . 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, 2015 Family history Qualifier Description Comment Date Reported Maternal Grandmother Comment not available Dec 26, 2015 Paternal Grandmother Comment not available Dec 26, 2015 Siblings Comment not available Dec 26, 2015 Maternal Grandfather Comment not available Dec 26, 2015 Children Comment not available Dec 26, 2015 Father gall stones Dec 26, 2015 Paternal Grandfather Comment not available Dec 26, 2015 Mother stroke Dec 26, 2015 Other: Comment not available Dec 26, 2015 Vital Signs Date/Time: Dec 26, 2015 Weight 146 lbs Height 73 in Cardiac Monitoring Heart Rate 78 /min Blood Pressure Diastolic 80 mm Hg Blood Pressure Systolic 130 mm Hg Summary Purpose eClinicalWorks Submission
--- OUTSIDE RECORDS SUMMARY | 2019-01-01 12:51 | XMS REPORT ---
Author Author Valarie Lam [facility] eClinicalWorks Address Unknown Phone Unavailable Care Team Providers Care Frothing Machine Operator Name Role Phone Valarie Lam CP Unavailable Encounters Encounter Location Date REF-MEDS [facility] Sep 22, 2015 LEFT SWELLING [facility] Jul 30, 2015 physical exam/FBW [facility] Aug 19, 2015 bumps on left leg around ankle [facility] Sep 12, 2015 Problems Problem Type Condition ICD-9 Code Onset Dates Condition Status Problem Type 2 diabetes mellitus without complication E11.9 Active Problem Mixed hyperlipidemia E78.2 Active Problem Microcytic anemia D50.9 Active Problem AGUSTIN (obstructive sleep apnea) G47.33 Active Problem GERD (gastroesophageal reflux disease) K21.9 Active Social History Social History Element Qualifiers Date Reported Fall Risk: . none in the past year Sep 12, 2015 Depression Screening: . negative 07/30/15 Sep 12, 2015 Flu Vaccine: . 2014Sep 12, 2015 Last Bone Density: . never Sep 12, 2015 Last Colonoscopy: . 2013 - normal Sep 12, 2015 children . 3 Sep 12, 2015 Tobacco Use: . Are you a: never smoker Sep 12, 2015 Marital Status: . Sep 12, 2015 Do you drink alcohol? . 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
--- OUTSIDE RECORDS SUMMARY | 2019-01-01 12:51 | XMS REPORT | Summary of Care ---
Author Author [facility] Organization [facility] Address Unknown Phone Unavailable Encounter HQ Maribeth(FERNANDO) [id number] Date(s): 10/18/16 - 10/18/16 [facility] [address] [place] [address]- [phone] Discharge Disposition: Home or Self Care Attending Physician: Rina Burger MD Admitting Physician: Rina Burger MD Vital Signs No data available for this section Problem List Condition Effective Dates Status Health Status Informant Cholesterol(Confirme Resolved d) Crohn's disease of Resolved intestine(Confirmed) Diabetes Resolved mellitus(Confirmed) Laryngeal Resolved mass(Confirmed) GERD - Resolved Gastro-esophageal reflux disease(Confirmed) Hypertension(Confirm Resolved ed) Anemia, iron Resolved deficiency(Confirmed ) Allergies, Adverse Reactions, Alerts Substance Reaction Severity Status NKDA Active Medications No data available for this section Results No data available for this section [...]
--- OUTSIDE RECORDS SUMMARY | 2019-01-01 12:51 | XMS REPORT ---
Author Author Margret German [facility] eClinicalWorks Address Unknown Phone Unavailable Care Team Providers Care Sneller Hand Name Role Phone Margret German CP Unavailable Allergies, Adverse Reactions, Alerts Substance Reaction Event Type N.K.D.A. Info Not Available Non Drug Allergy Encounters Encounter Location Date REF-MEDS [facility] Sep 22, 2015 follow up [facility] Nov 18, 2015 xray results [facility] Dec 26, 2015 Unknown [facility] January 13, 2016 LEFT SWELLING [facility] Jul 30, 2015 physical exam/FBW [facility] Aug 19, 2015 bumps on left leg around ankle [facility] Sep 12, 2015 Unknown [facility] Aug 04, 2016 Problems Problem Type Condition ICD-9 Code [...] Problem Ankle swelling, left M25.472 Active Assessment Complication due to Crohn's disease of small and large intestines K50.819 Active Problem GERD (gastroesophageal reflux disease) K21.9 Active Assessment Anemia due to gastrointestinal blood loss D50.0 Active Assessment Crohn's disease of both small and large intestine without complications K50.80 Active Problem Type 2 diabetes mellitus without complication E11.9 Active Problem Microcytic anemia D50.9 Active Problem AGUSTIN (obstructive sleep apnea) G47.33 Active Problem BMI less than 19,adult Z68.1 Active Problem Mixed hyperlipidemia E78.2 Active Problem Iron deficiency E61.1 Active Medications Medication Code System Code Instructions Start Date End Date Status Dosage Metformin HCl [facility] [address]-91 850 mg BID Active 1 tablet Tramadol HCl [facility] [address]-17 50 MG Orally every 6 hrs Active 1 tablet as needed Lisinopril [facility] [address]-64 2.5 mg daily Active 1 tablet Simvastatin [facility] [address]-36 40 mg daily Active 1 tablet PredniSONE [facility] [address]-32 20 mg Orally Once a day January 13, 2016 Active 1 tablet with food or milk Social History Social History Element Qualifiers Date Reported Fall Risk: . none in the past year Aug 04, 2016 Depression Screening: . negative 07/30/15 Aug 04, 2016 Flu Vaccine: . 2014Aug 04, 2016 Last Bone Density: . never Aug 04, 2016 Last Colonoscopy: . 2014 - normal Aug 04, 2016 children . 3 Aug 04, 2016 Tobacco Use: . Are you a: never smoker Aug 04, 2016 Marital Status: . Aug 04, 2016 Do you drink alcohol? . 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, 2016 Family history Qualifier Description Comment Date Reported Maternal Grandmother Comment not available Aug 04, 2016 Paternal Grandmother Comment not available Aug 04, 2016 Siblings Comment not available Aug 04, 2016 Maternal Grandfather Comment not available Aug 04, 2016 Children Comment not available Aug 04, 2016 Father gall stones Aug 04, 2016 Paternal Grandfather Comment not available Aug 04, 2016 Mother stroke Aug 04, 2016 Other: Comment not available Aug 04, 2016 Vital Signs Date/Time: Aug 04, 2016 Weight 185 lbs Height 73 in Cardiac Monitoring Heart Rate 68 /min Blood Pressure Diastolic 68 mm Hg Blood Pressure Systolic 118 mm Hg Summary Purpose eClinicalWorks Submission
--- OUTSIDE RECORDS SUMMARY | 2019-01-01 12:51 | XMS REPORT ---
Author Author Valarie Lam [facility] eClinicalWorks Address Unknown Phone Unavailable Care Team Providers Care Regional Director Of Admissions Name Role Phone Valarie Lam CP Unavailable Allergies, Adverse Reactions, Alerts Substance Reaction Event Type N.K.D.A. Info Not Available Non Drug Allergy Encounters Encounter Location Date LEFT SWELLING [facility] Jul 30, 2015 physical exam/FBW [facility] Aug 19, 2015 bumps on left leg around ankle [facility] Sep 12, 2015 Problems Problem Type Condition ICD-9 Code Onset Dates Condition Status Assessment Type 2 diabetes mellitus without complication E11.9 Active Assessment Mixed hyperlipidemia E78.2 Active Problem Type 2 diabetes mellitus without complication E11.9 Active Problem Mixed hyperlipidemia E78.2 Active Problem Microcytic anemia D50.9 Active Assessment Microcytic anemia D50.9 Active Assessment Skin infection L08.9 Active Problem AGUSTIN (obstructive sleep apnea) G47.33 Active Problem GERD (gastroesophageal reflux disease) K21.9 Active Medications Medication Code System Code Instructions Start Date End Date Status Dosage Naproxen [facility] [address]-46 375 MG Orally Twice a day Active 1 tablet Lisinopril [facility] [address]-58 2.5 mg daily Active 1 tablet Metformin HCl [facility] [address]-75 850 mg BID Active 1 tablet Mupirocin [facility] [address]-20 2 % Externally twice a day (bid) Sep 12, 2015 Sep 22, 2015 Active 1 application to affected area and inside each nostril [facility]ulf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
--- OUTSIDE RECORDS SUMMARY | 2019-01-01 12:51 | XMS REPORT ---
Author Author Margret German [facility] eClinicalWorks Address Unknown Phone Unavailable Care Team Providers Care Loan Approver Name Role Phone Margret German Unavailable Encounters Encounter Location Date REF-MEDS [facility] Sep 22, 2015 follow up [facility] Nov 18, 2015 xray results [facility] Dec 26, 2015 Unknown [facility] January 13, 2016 LEFT SWELLING [facility] Jul 30, 2015 physical exam/FBW [facility] Aug 19, 2015 bumps on left leg around ankle [facility] Sep [...] Problem Ankle swelling, left M25.472 Active Problem GERD (gastroesophageal reflux disease) K21.9 Active Problem Type 2 diabetes mellitus without complication E11.9 Active Problem Microcytic anemia D50.9 Active Problem AGUSTIN (obstructive sleep apnea) G47.33 Active Problem BMI less than 19,adult Z68.1 Active Problem Mixed hyperlipidemia E78.2 Active Problem Iron deficiency E61.1 Active Medications Medication Code System Code Instructions Start Date End Date Status Dosage PredniSONE [facility] [address]-96 20 mg Orally Once a day January 13, 2016 Active 1 tablet with food or milk Social History Social History Element Qualifiers Date Reported Fall Risk: . none in the past year Dec 26, 2015 Depression Screening: . negative 9/30/15 Dec 26, 2015 Flu Vaccine: . 2015 Dec 26, 2015 Last Bone Density: . never Dec 26, 2015 Last Colonoscopy: . 2014 - normal Dec 26, 2015 children . 3 Dec 26, 2015 Tobacco Use: . Are you a: never smoker Dec 26, 2015 Marital Status: . Dec 26, 2015 Do you drink alcohol? . 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
--- OUTSIDE RECORDS SUMMARY | 2019-01-01 12:51 | XMS REPORT ---
Author Author Margret German [facility] eClinicalWorks Address Unknown Phone Unavailable Care Team Providers Care Sugar Presser Name Role Phone Margret German CP Unavailable Allergies, Adverse Reactions, Alerts Substance Reaction Event Type N.K.D.A. Info Not Available Non Drug Allergy Encounters Encounter Location Date REF-MEDS [facility] Sep 22, 2015 follow up [facility] Nov 18, 2015 xray results [facility] Dec 26, 2015 Unknown [facility] January 13, 2016 LEFT SWELLING [facility] Jul 30, 2015 physical exam/FBW [facility] Aug 19, 2015 bumps on left leg around ankle [facility] Sep 12, 2015 Unknown [facility] Aug 04, 2016 FOLLOW UP FROM HOSPITALIZATION [facility] Aug 25, 2016 Problems Problem Type Condition ICD-9 Code Onset Dates Condition Status Problem Elevated antinuclear antibody (JOJO) level R76.8 Active Problem Acute right ankle pain M25.571 Active Problem Skin lesion L98.9 Active Problem Abnormal weight loss R63.4 Active Assessment Proctocolitis, with rectal bleeding K51.211 Active Problem Atrophy of muscle of extremity M62.58 Active Assessment Acute allergic conjunctivitis, bilateral H10.13 Active Problem Closed fracture of distal end of left fibula, unspecified fracture morphology, initial encounter S82.832A Active Problem Ankle swelling, right M25.471 Active Problem Acute left ankle pain M25.572 Active Problem Underweight R63.6 Active Problem Ankle swelling, left M25.472 Active Assessment Hospital discharge follow-up Z09 Active Problem GERD (gastroesophageal reflux disease) K21.9 Active Assessment Colitis K52.9 Active Assessment Gastrointestinal hemorrhage associated with anorectal source K62.5 Active Problem Type 2 diabetes mellitus without complication E11.9 Active Problem Microcytic anemia D50.9 Active Problem AGUSTIN (obstructive sleep apnea) G47.33 Active Problem BMI less than 19,adult Z68.1 Active Problem Mixed hyperlipidemia E78.2 Active Problem Iron deficiency E61.1 Active Medications Medication Code System Code Instructions Start Date End Date Status Dosage Simvastatin [facility] [address]-39 40 mg daily Active 1 tablet PredniSONE [facility] [address]-59 20 mg Orally Once a day January 13, 2016 Active 1 tablet with food or milk Tramadol HCl [facility] [address]-80 50 MG Orally every 6 hrs Active 1 tablet as needed Lisinopril [facility] [address]-78 2.5 mg daily Active 1 tablet Patanol [facility] [address]-91 0.1 % Ophthalmic Twice a day Aug 25, 2016 Active 1 drop into affected eye Metformin HCl [facility] [address]-10 850 mg BID Active 1 tablet Multi For Her 50+ [facility] [address]83 Orally Active Unknown Social History Social History Element Qualifiers Date Reported Fall Risk: . none in the past year Aug 25, 2016 Depression Screening: . negative 07/30/15 Aug 25, 2016 Flu Vaccine: . 2014Aug 25, 2016 Last Bone Density: . never Aug 25, 2016 Last Colonoscopy: . 2014 - normal Aug 25, 2016 children . 3 Aug 25, 2016 Tobacco Use: . Are you a: never smoker Aug 25, 2016 Marital Status: . Aug 25, 2016 Do you drink alcohol? . 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, 2016 Family history Qualifier Description Comment Date Reported Maternal Grandmother Comment not available Aug 25, 2016 Paternal Grandmother Comment not available Aug 25, 2016 Siblings Comment not available Aug 25, 2016 Maternal Grandfather Comment not available Aug 25, 2016 Children Comment not available Aug 25, 2016 Father gall stones Aug 25, 2016 Paternal Grandfather Comment not available Aug 25, 2016 Mother stroke Aug 25, 2016 Other: Comment not available Aug 25, 2016 Vital Signs Date/Time: Aug 25, 2016 Weight 186 lbs Height 73 in Cardiac Monitoring Heart Rate 68 /min Blood Pressure Diastolic 68 mm Hg Blood Pressure Systolic 124 mm Hg Summary Purpose eClinicalWorks Submission
--- OUTSIDE RECORDS SUMMARY | 2019-01-01 12:51 | XMS REPORT ---
Author Author Margret German [facility] eClinicalWorks Address Unknown Phone Unavailable Care Team Providers Care Airport Operations Supervisor Name Role Phone Margret German Unavailable Allergies, Adverse Reactions, Alerts Substance Reaction [...] 12, 2015 follow up from test results [facility] Sep 28, 2016 Unknown [facility] Problem Abnormal weight loss R63.4 Active Assessment Proctitis K62.89 Active Problem Atrophy of muscle of extremity [...] GERD (gastroesophageal reflux disease) K21.9 Active Assessment Encounter to discuss test results Z71.89 Active Assessment Acute posthemorrhagic anemia D62 Active Problem Type 2 diabetes mellitus without complication E11.9 Active Problem Microcytic anemia D50.9 Active Problem AGUSTIN (obstructive sleep apnea) G47.33 Active Problem BMI less than 19,adult Z68.1 Active Problem Mixed hyperlipidemia E78.2 Active Problem Iron deficiency E61.1 Active Medications Medication Code System Code Instructions Start Date End Date Status Dosage Multi For Her 50+ [facility] [address] Orally Active Unknown Tramadol HCl [facility] [address]-35 50 MG Orally every 6 hrs Active 1 tablet as needed Simvastatin [facility] [address]-64 40 mg daily Active 1 tablet PredniSONE [facility] [address]-86 20 mg Orally Once a day January 13, 2016 Active 1 tablet with food or milk Patanol [facility] [address]-32 0.1 % Ophthalmic Twice a day Aug 25, 2016 Active 1 drop into affected eye Lisinopril [facility] [address]-73 2.5 mg daily Active 1 tablet Metformin HCl [facility] [address]-42 850 mg BID Active 1 tablet Social History Social History Element Qualifiers Date Reported Fall Risk: . none in the past year Sep 28, 2016 Depression Screening: . negative 07/30/15 Sep 28, 2016 Flu Vaccine: . 2015 Sep 28, 2016 Last Bone Density: . never Sep 28, 2016 Last Colonoscopy: . 2014 - normal Sep 28, 2016 children . 3 Sep 28, 2016 Tobacco Use: . Are you a: never smoker Sep 28, 2016 Marital Status: . Sep 28, 2016 Do you drink alcohol? . 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
--- OUTSIDE RECORDS SUMMARY | 2019-01-01 12:51 | XMS REPORT ---
Author Author Margret German [facility] eClinicalWorks Address Unknown Phone Unavailable Care Team Providers Care Family Dinner Service Specialist Name Role Phone Margret German CP Unavailable Allergies, Adverse Reactions, Alerts Substance Reaction Event Type N.K.D.A. Info Not Available Non Drug Allergy Encounters Encounter Location Date REF-MEDS [facility] Sep 22, 2015 follow up [facility] Nov 18, 2015 LEFT SWELLING [facility] Jul 30, 2015 physical exam/FBW [facility] Aug 19, 2015 bumps on left leg around ankle [facility] Sep 12, 2015 Problems Problem Type Condition ICD-9 Code Onset Dates Condition Status Assessment IBS (irritable bowel syndrome) K58.9 Active Problem Type 2 diabetes mellitus without complication E11.9 Active Problem Mixed hyperlipidemia E78.2 Active Problem Microcytic anemia D50.9 Active Assessment DJD (degenerative joint disease), 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 [address]-51 2.5 mg daily Active [address] [facility] [address]-05 40 mg daily Active [address] [facility] [address]-43 50 mg Orally Three times a day Nov 18, 2015 Dec 18, 2015 Active 1 capsule with food Cephalexin [facility] [address]-21 500 mg Orally Twice a day Active 1 capsule Tramadol [facility] [address]-04 50 MG Orally every 6 hrs Active 1 tablet as needed [facility] [address]-31 850 mg BID Active 1 tablet Naproxen [facility] [address]-24 375 MG Orally Twice a day Inactive 1 tablet Social History Social History Element Qualifiers Date Reported Fall Risk: . none in the past year Dec 01, 2015 Depression Screening: . negative 07/30/15 Dec 01, 2015 Flu Vaccine: . 2014Dec 01, 2015 Last Bone Density: . never Dec 01, 2015 Last Colonoscopy: . 2013 - normal Dec 01, 2015 children . 3 Dec 01, 2015 Tobacco Use: . Are you a: never smoker Dec 01, 2015 Marital Status: . Dec 01, 2015 Do you drink alcohol? . 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
== END 2019-01-01 13:50 | disposition home or self-care (01) ==
LOC: FSED 12:47
DX: R05 Cough (principal); J20.9 Acute bronchitis, unspecified; E11.9 Type 2 diabetes mellitus without complications
CPT/HCPCS: 99283